=== PATIENT | female | born 1970 | race Caucasian/White ===

== ENCOUNTER 2023-08-16 16:40 | Inpatient (IN) ==
[2023-08-16 17:58] LABS: Appearance Urine Clear (Clear); Bilirubin Urine Negative (Negative); Blood Urine Negative (Negative); Color Urine Yellow; Glucose Urine UA Negative (Negative); Ketones Urine Negative (Negative); Leukocyte Esterase Urine 1+ (Negative); Nitrite Urine Negative (Negative); Protein Urine Negative (Negative); Specific Gravity Urine 1.005 (1.000-1.030); Urobilinogen Urine Negative (Negative); pH Urine 5.5 (4.5-7.5)
--- NOTE | 2023-08-16 18:01 | Emergency Department Note ---
History of Present Illness General Chief complaint: Mental Health Evaluation Stated complaint: Mental Health Evaluation Time Seen by Provider: 08/16/23 17:29 History of Present Illness Provider complaint: Mental health evaluation 53-year-old female presents emergency department for mental health evaluation. Patient reports she started drinking alcohol again recently. She states she called her counselor who referred her to the emergency department. She currently denies any suicidal or homicidal ideation. Patient reports no falls or traumas but states she fell like she was get a pass out earlier today. Home Medications Medication Instructions Recorded Confirmed Type alprazolam 0.5 mg tablet 0.5 mg PO BID PRN Anxiety 10/28/18 08/16/23 History venlafaxine 150 mg 150 mg PO QAM 10/28/18 08/16/23 History capsule,extended release 24 hr clonidine HCl 0.1 mg tablet 0.2 mg PO HS 10/23/19 08/16/23 History lisinopril 20 mg tablet 20 mg PO QAM 07/26/20 08/16/23 History buspirone 10 mg tablet 10 mg PO BID 08/16/23 08/16/23 History gabapentin 300 mg capsule 300 mg PO TID 08/16/23 08/16/23 History hydroxychloroquine 200 mg tablet 200 mg PO HS 08/16/23 08/16/23 History methotrexate sodium 2.5 mg tablet 10 mg PO 2XWK 08/16/23 08/16/23 History Allergies Allergy/AdvReac Type Severity Reaction Status Date / Time No Known Allergies Allergy Verified 07/26/20 18:39 Past Med/Surg History Medical History (Updated 08/16/23 @ 21:29 by Bernardo Spears MD) HTN (hypertension) Alcohol use Rheumatoid arthritis Hyponatremia Alcoholic intoxication Dysthymia (or depressive neurosis) Surgical History History of gastric bypass Family History Other No pertinent family history in first degree relatives Social History Smoking Status: Never smoker Preferred Language: [place] marital status: current occupational status: employed Feels Safe at Home: Yes Physical Exam Vital Signs Vital Signs - 24 hr 08/16/23 17:13 08/16/23 18:32 08/16/23 20:24 Temperature 36.3 C L Temperature Source Temporal Artery Scan Pulse Rate 92 H Pulse Rate [Apical] 95 H 86 Pulse Rhythm [Apical] Regular Respiratory Rate 18 16 19 Respiratory Effort / Characteristics Non-Labored Respiratory Depth Normal Respiratory Pattern Regular Blood Pressure 188/107 H Blood Pressure [Left Arm] 157/88 H 156/90 H Blood Pressure Mean 134 Blood Pressure Mean [Left Arm] 111 112 Pulse Oximetry 99 97 97 Oxygen Delivery Method Room Air Room Air Sepsis Recent Fever Within 48 Hours No Sepsis New/Unexplained Change in Mental Status N/A Sepsis Action Taken by Nursing No Action Required 08/16/23 21:05 Temperature Temperature Source Pulse Rate Pulse Rate [Apical] 81 Pulse Rhythm [Apical] Respiratory Rate 16 Respiratory Effort / Characteristics Respiratory Depth Respiratory Pattern Blood Pressure Blood Pressure [Left Arm] 141/86 H Blood Pressure Mean Blood Pressure Mean [Left Arm] 104 Pulse Oximetry 97 Oxygen Delivery Method Room Air Sepsis Recent Fever Within 48 Hours Sepsis New/Unexplained Change in Mental Status Sepsis Action Taken by Nursing Physical Exam GENERAL: She is oriented to person, place, and time. She appears well-developed and well-nourished. She does not appear distressed. HENT: Exam performed. -Head: Normocephalic and atraumatic. -Right Ear: External ear normal. No mastoid erythema -Left Ear: External ear normal. No mastoid erythema -Mouth/Throat: The oropharynx is clear and moist. No trismus in the jaw. No dental abscesses or uvula swelling. No oropharyngeal exudate or tonsillar abscesses. EYES: Conjunctivae and EOM are normal. Pupils are equal, round, and reactive to light. Right eye exhibits no discharge. Left eye exhibits no discharge. No scleral icterus. NECK: Normal range of motion. Neck supple. No JVD present. No spinous process tenderness present. No tracheal deviation and normal range of motion present. CV: Normal rate, regular rhythm, normal heart sounds and intact distal pulses. There is no peripheral edema. Palpable radial pulses bue. PULM/CHEST: Effort normal and breath sounds normal. No respiratory distress. No stridor. She has no wheezes. She has no rales. ABD: The abdomen is soft. There is no tenderness. There is no rebound, no guarding. MUSC/SKEL: Normal range of motion. There is no peripheral edema, tenderness or deformity. LYMPH: No cervical adenopathy. NEURO: She is alert and oriented to person, place, and time. She has normal strength. No cranial nerve deficit or sensory deficit. Coordination and gait normal. GCS eye subscore is 4. GCS verbal subscore is 5. GCS motor subscore is 6. Cerebellar tests wnl. SKIN: Skin is warm and dry. She is not diaphoretic. PSYCH: She has a normal mood and affect. Behavior is normal. Judgment and thought content normal. Course Course 1728: The patient was evaluated in room A5. A complete history and physical exam was performed 1954: Vital signs stable. Patient sodium 120. Labs otherwise unremarkable. No seizure-like activity at this time no altered mental status no need for hypertonic saline. Patient will be gently hydrated with normal saline [facility] Se[facility]. Administered Medications Discontinued Medications Clonidine HCl (Clonidine Hcl 0.1 Mg Tab) 0.1 mg PO NOW ONE Stop: 08/16/23 20:16 Last Admin: 08/16/23 20:28 Dose: 0.1 mg Documented By: JOSE Sodium Chloride (Nss) 1,000 mls @ 80 mls/hr IV .[id number] [id number] Stop: 09/15/23 19:44 Last Admin: 08/16/23 20:21 Dose: Not Given Documented By: JOSE Thiamine HCl 100 mg/ Syringe 10 mls @ 2 mls/min IV NOW ONE Stop: 08/16/23 20:19 Last Admin: 08/16/23 20:28 Dose: 2 mls/min Documented By: JOSE Lorazepam (Lorazepam 1 Mg Tab) 1 mg SL NOW STA Stop: 08/16/23 18:57 Last Admin: 08/16/23 19:09 Dose: 1 mg Documented By: JOSE Ondansetron HCl (Ondansetron 4 Mg Od Tab) 4 mg PO NOW STA Stop: 08/16/23 18:57 Last Admin: 08/16/23 19:09 Dose: 4 mg Documented By: JOSE Medical Decision Making Laboratory Data Attestation: I reviewed the patient's lab results. 08/16/23 18:29 08/16/23 18:29 Lab Results 08/16/23 08/16/23 08/16/23 Range/Units 17:34 17:38 18:29 WBC 7.61 (4.8-10.8) K/ul RBC 4.01 L (4.20-5.40) M/uL Hgb 11.2 L (12.0-16.0) g/dl Hct 32.1 L (37.0-47.0) % MCV 80.0 (80.0-100.0) fL MCH 27.9 (25.0-34.0) pg MCHC 34.9 (32.0-36.0) g/dL RDW Std Deviation 43.7 (36.4-46.3) fL RDW Coeff of Leon 15.0 H (11.5-14.5) % Plt Count 224 (130-400) K/uL MPV 10.3 (9.4-12.4) fL Immature Gran % (Auto) 0.3 % Neut % (Auto) 79.0 % Lymph % (Auto) 13.1 % [place] % (Auto) 6.8 % Eos % (Auto) 0.4 % Baso % (Auto) 0.4 % Neut # (Auto) 6.01 (1.40-6.50) K/uL Lymph # (Auto) 1.00 L (1.20-3.40) K/uL [place] # (Auto) 0.52 (0.11-0.59) K/uL Eos # (Auto) 0.03 (0.00-0.50) K/uL Baso # (Auto) 0.03 (0.00-0.20) K/uL Immature Gran # (Auto) 0.02 (0.01-0.20) K/uL Sodium 120 L (136-145) mmol/L Potassium 3.7 (3.5-5.1) mmol/L Chloride 89 L (98-107) mmol/L Carbon Dioxide 23 (21-32) mmol/L Anion Gap 8 (3-11) BUN 7 (6-23) mg/dl Creatinine 0.62 (0.6-1.2) mg/dl Est Cr Clr Drug Dosing 104.5 ml/min Est GFR ( Amer) 120.2 ml/min Est GFR (Non-Af Amer) 103.7 ml/min BUN/Creatinine Ratio 11.3 (10-20) Glucose 132 H (70-99(Fasting)) mg/dl Osmolality (280-300) mOsm/kg Calcium 8.3 L (8.6-10.3) mg/dl Magnesium 1.9 (1.7-2.4) mg/dl Total Bilirubin 0.6 (0.2-1.0) mg/dl AST 31 (13-39) U/L ALT 26 (7-52) U/L Alkaline Phosphatase 91 (34-104) U/L Total Protein 6.7 (6.0-8.3) gm/dl Albumin 3.8 (3.4-5.0) gm/dl Globulin 2.9 (2.5-4.0) gm/dl Albumin/Globulin Ratio 1.3 (0.9-2) TSH 1.271 (0.300-4.500) uIu/ml Urine Color Yellow Urine Appearance Clear (Clear) Urine pH 5.5 (4.5-7.5) Ur Specific [place] 1.005 (1.000-1.030) Urine Protein Negative (Negative) Urine Glucose (UA) Negative (Negative) Urine Ketones Negative (Negative) Urine Blood Negative (Negative) Urine Nitrite Negative (Negative) Urine Bilirubin Negative (Negative) Urine Urobilinogen Negative (Negative) Ur Leukocyte Esterase 1+ H (Negative) Urine WBC (Auto) 1-5 (0-5) /hpf Urine RBC (Auto) 0-4 (0-4) /hpf U Hyaline Cast (Auto) 0 (0-5) /lpf U Epithel Cells (Auto) 5-10 H (0-5) /lpf Urine Bacteria (Auto) Negative (Negative) Ur Random Sodium mmol/L Salicylates < 3.0 L (3.0-30) mg/dl Urine Opiates Screen Neg (Neg) Ur Methadone, Qual Neg (Neg) Acetaminophen < 3 L (10-30) ug/ml Urine Barbiturates Neg (Neg) Ur Phencyclidine (PCP) Neg (Neg) U Amphetamin/Meth Scrn Neg (Neg) MDMA (Ecstasy) Screen Neg (Neg) U Benzodiazepines Scrn Neg (Neg) Ur Cocaine Metabolite Neg (Neg) U Marijuana (THC) Screen Pos H (Neg) Ethyl Alcohol mg/dL < 10.0 (<10.0) mg/dl SARS-CoV-2, RNA, NAAT NEGATIVE (NEGATIVE) 08/16/23 08/16/23 Range/Units 18:30 20:55 WBC (4.8-10.8) K/ul RBC (4.20-5.40) M/uL Hgb (12.0-16.0) g/dl Hct (37.0-47.0) % MCV (80.0-100.0) fL MCH (25.0-34.0) pg MCHC (32.0-36.0) g/dL RDW Std Deviation (36.4-46.3) fL RDW Coeff of Leon (11.5-14.5) % Plt Count (130-400) K/uL MPV (9.4-12.4) fL Immature Gran % (Auto) % Neut % (Auto) % Lymph % (Auto) % [place] % (Auto) % Eos % (Auto) % Baso % (Auto) % Neut # (Auto) (1.40-6.50) K/uL Lymph # (Auto) (1.20-3.40) K/uL [place] # (Auto) (0.11-0.59) K/uL Eos # (Auto) (0.00-0.50) K/uL Baso # (Auto) (0.00-0.20) K/uL Immature Gran # (Auto) (0.01-0.20) K/uL Sodium (136-145) mmol/L Potassium (3.5-5.1) mmol/L Chloride (98-107) mmol/L Carbon Dioxide (21-32) mmol/L Anion Gap (3-11) BUN (6-23) mg/dl Creatinine (0.6-1.2) mg/dl Est Cr Clr Drug Dosing ml/min Est GFR ( Amer) ml/min Est GFR (Non-Af Amer) ml/min BUN/Creatinine Ratio (10-20) Glucose (70-99(Fasting)) mg/dl Osmolality 251 L (280-300) mOsm/kg Calcium (8.6-10.3) mg/dl Magnesium (1.7-2.4) mg/dl Total Bilirubin (0.2-1.0) mg/dl AST (13-39) U/L ALT (7-52) U/L Alkaline Phosphatase (34-104) U/L Total Protein (6.0-8.3) gm/dl Albumin (3.4-5.0) gm/dl Globulin (2.5-4.0) gm/dl Albumin/Globulin Ratio (0.9-2) TSH (0.300-4.500) uIu/ml Urine Color Urine Appearance (Clear) Urine pH (4.5-7.5) Ur Specific [place] (1.000-1.030) Urine Protein (Negative) Urine Glucose (UA) (Negative) Urine Ketones (Negative) Urine Blood (Negative) Urine Nitrite (Negative) Urine Bilirubin (Negative) Urine Urobilinogen (Negative) Ur Leukocyte Esterase (Negative) Urine WBC (Auto) (0-5) /hpf Urine RBC (Auto) (0-4) /hpf U Hyaline Cast (Auto) (0-5) /lpf U Epithel Cells (Auto) (0-5) /lpf Urine Bacteria (Auto) (Negative) Ur Random Sodium 11 mmol/L Salicylates (3.0-30) mg/dl Urine Opiates Screen (Neg) Ur Methadone, Qual (Neg) Acetaminophen (10-30) ug/ml Urine Barbiturates (Neg) Ur Phencyclidine (PCP) (Neg) U Amphetamin/Meth Scrn (Neg) MDMA (Ecstasy) Screen (Neg) U Benzodiazepines Scrn (Neg) Ur Cocaine Metabolite (Neg) U Marijuana (THC) Screen (Neg) Ethyl Alcohol mg/dL (<10.0) mg/dl SARS-CoV-2, RNA, NAAT (NEGATIVE) Imaging Data Radiologist's Impression: Head CT 08/16/23 17:38 CT head/brain wo con CLINICAL HISTORY: near syncope Technique: Contiguous axial CT images of the head were acquired from the base of the skull to the vertex without intravenous contrast administration. Images were viewed in brain, subdural and bone windows. Automated dose lowering techniques and/or adjustment according to patient size were utilized for this exam. Comparison: Comparison is made to CT head 07/26/2020 Findings: Ventriculomegaly is seen with a right lateral approach ventriculostomy catheter terminating in the right lateral ventricle. Imaged portions of the paranasal sinuses and mastoid air cells are clear. The orbits appear normal. There are no acute fractures of the calvaria or scalp swelling. Impression: No acute abnormalities. Ventriculostomy catheter and ventriculomegaly are unchanged from prior. ACT 112: Negative or not required by law. Electronically signed by: David Yost M.D. 08/16/2023 6:43 PM MDM Narrative Vital signs stable. Patient sodium 120. Labs otherwise unremarkable. No seizure-like activity at this time no altered mental status no need for hypertonic saline. Patient will be gently hydrated with normal saline [facility] Seo notified. Impression & Plan Hyponatremia Discharge Plan Visit Data Chief Complaint: Mental Health Evaluation Stated Complaint: Mental Health Evaluation ED Provider: Bernardo Spears Discharge Problem: Hyponatremia Patient Disposition: Admitted As Inpatient Forms Stand Alone Forms: [facility], Suicide Prevention Resources Prescriptions Prescriptions: No Action venlafaxine 150 mg capsule,extended release 24hr 150 mg PO QAM alprazolam 0.5 mg tablet 0.5 mg PO BID PRN (Reason: Anxiety) clonidine HCl 0.1 mg tablet 0.2 mg PO HS lisinopril 20 mg tablet 20 mg PO QAM methotrexate sodium 2.5 mg tablet 10 mg PO 2XWK buspirone 10 mg tablet 10 mg PO BID gabapentin 300 mg capsule 300 mg PO TID hydroxychloroquine 200 mg tablet 200 mg PO HS Referrals Referrals: Kaleigh Miramontes DO [Primary Care Provider] -
[2023-08-16 18:16] LABS: RBC Urine Automated 0-4 /hpf (0-4)
[2023-08-16 18:17] LABS: Bacteria Urine Automated Negative (Negative); Cast Urine Automated 0 /lpf (0-5)
[2023-08-16 18:37] LABS: Amphetamines+Metham, Urine Neg (Neg); Barbiturates, Urine Neg (Neg); Benzodiazepine, Urine Neg (Neg); Cocaine, Urine Neg (Neg); MDMA (Ecstacy), Urine Neg (Neg); Marijuana, Urine Pos (Neg); Methadone, Urine Neg (Neg); Opiate, Urine Neg (Neg); Phencyclidine, Urine Neg (Neg)
--- NOTE | 2023-08-16 18:44 | CT Scan Report ---
CT head/brain wo con CLINICAL HISTORY: near syncope Technique: Contiguous axial CT images of the head were acquired from the base of the skull to the ami elsi without intravenous contrast administration. Images were viewed in brain, subdural and bone channing home. Automated dose lowering techniques and/or adjustment according to patient size were utilized for this exam. Comparison: Comparison is made to CT head 07/26/2020 Findings: Ventriculomegaly is seen with a right lateral approach ventriculostomy catheter terminating in the ri ght lateral ventricle. Imaged portions of the paranasal sinuses and mastoid air cells are clear. The orbits appear normal. There are no acute fractures of the calvaria or scalp swelling. Impression: No acute abnormalities. Ventriculostomy catheter and ventriculomegaly are unchanged from prior. ACT 112: Negative or not required by law. Electronically signed by: David Yost M.D. 08/16/2023 6:43 PM
[2023-08-16 18:45] LABS: Basophils # (auto) 0.03 K/uL (0.00-0.20); Basophils % (auto) 0.4 %; Eosinophils # (auto) 0.03 K/uL (0.00-0.50); Eosinophils % (auto) 0.4 %; Hematocrit (blood only) 32.1 % (37.0-47.0); Hemoglobin 11.2 g/dl (12.0-16.0); Immature Granulocytes # (auto) 0.02 K/uL (0.01-0.20); Immature Granulocytes % (auto) 0.3 %; Lymphocytes % (auto) 13.1 %; Mean Corpuscular Hemoglobin 27.9 pg (25.0-34.0); Mean Corpuscular Hgb Conc 34.9 g/dL (32.0-36.0); Mean Platelet Volume 10.3 fL (9.4-12.4); Monocytes # (auto) 0.52 K/uL (0.11-0.59); Monocytes % (auto) 6.8 %; Neutrophils # (auto) 6.01 K/uL (1.40-6.50); Platelet Count 224 K/uL (130-400); RDW Standard Deviation 43.7 fL (36.4-46.3); Red Blood Count 4.01 M/uL (4.20-5.40); White Blood Count 7.61 K/ul (4.8-10.8)
[2023-08-16] MEDS ORDERED: LORazepam 1 MG TAB SL STA (18:56)
[2023-08-16] MEDS ORDERED: ONDANSETRON 4 MG OD TAB PO STA (18:56)
[2023-08-16 19:01] LABS: Albumin Globulin Ratio 1.3 (0.9-2); Albumin Level 3.8 gm/dl (3.4-5.0); BUN Creatinine Ratio 11.3 (10-20); Bilirubin,Total 0.6 mg/dl (0.2-1.0); Calcium 8.3 mg/dl (8.6-10.3); Creatinine Clr Calc Pharmacy 104.5 ml/min; Est GFR (African American) 120.2 ml/min; Est GFR (Non-African American) 103.7 ml/min; Globulin 2.9 gm/dl (2.5-4.0); Potassium 3.7 mmol/L (3.5-5.1); Total Protein 6.7 gm/dl (6.0-8.3)
[2023-08-16 19:13] LABS: Acetaminophen < 3 ug/ml (10-30); Salicylate < 3.0 mg/dl (3.0-30)
[2023-08-16 19:16] LABS: Thyroid Stimulating Hormone 1.271 uIu/ml (0.300-4.500)
[2023-08-16] MEDS ORDERED: SODIUM CHLORIDE 0.9% 1,000 ML IV SCH (19:45)
--- NOTE | 2023-08-16 20:08 | History & Physical Report ---
Date of Service August 16, 2023 Assessment & Plan (1) Hyponatremia: (2) History of gastric bypass: (3) Dysthymia (or depressive neurosis): (4) Rheumatoid arthritis: (5) Alcohol use: (6) HTN (hypertension): Plan Ms. Talbert is a 53 year old female that presented to the [facility] today as per recommendation by her coworkers. This morning she was feeling faint at work, she works at [employer]. She was walking and knocked over some [place] decorations. Her coworkers stated that she should go to the emergency room she has history of alcohol abuse and had an alcoholic drink last Wednesday; previously has been sober since 2019 She drank 12 simply lemonade's 5% proof over 32 hours. She follows with a counselor weekly who stated that it it appeared as though she has had worsening anxiety and dizziness over the past few weeks. Reports that there have been significant stressors in her life that led to her drinking which includes her fianc moving out and both grandparents within a few days of each other a few months ago. Additional PMH includes: Dysthymia, alcohol abuse, history of gastric bypass (2011), rheumatoid arthritis, hydrocephalus as an infant status post ventriculostomy. Head CT was performed and results indicate No acute abnormalities. Ventriculostomy catheter and ventriculomegaly are unchanged from prior. No leukocytosis and otherwise labs unremarkable outside of hyponatremia serum sodium 120. Patient denies headache, fatigue, lethargy, gait disturbance, confusion, forgetfulness, headache, gait disturbance, or muscle cramps. Denies recent falls or trauma. Patient reports no suicidal ideation, no falls however did feel syncopal earlier Suspect patient is hyponatremic secondary to alcohol use disorder. Patient is high risk for OTS; goal of initial therapy suggest to raise the serum sodium by 4 to 6 mEq/L over 24-hour period and avoid overcorrection. Check Q6 BMP, including serum Na+, Urine Osmo, urine Na+; based on next BMP consider Nephrology involvement for consideration of 3% NS. Consider Behavioral Health Liason for worsening depressive mood. Thiamine for alcohol symptoms. Need to consider ECHO and rule out heart failure if no improvement with sodium. Hyponatremia: acute Likely secondary to alcohol use disorder Serum Na+ 120; was 136 on 07/13/23 Patient is high risk for OTS; goal of initial therapy suggest to raise the serum sodium by 4 to 6 mEq/L over 24-hour period and avoid overcorrection. Check BMP with serum Na+ Q6 Check Urine Osmolality, Urine Na+ Consider Nephro involvement if no improvement Alcohol Abuse: Acute had her first alcoholic drink last Wednesday; previously has been sober since 2019 She drank 12 simply lemonade's 5% proof over 32 hours no signs of tremulous on exam Follows with a counselor weekly HTN: Chronic Takes Clonidine and Lisinopril; continue Dysthymia: Chronic Takes Venlafaxine;continue Takes Alprazolam PRN; continue Consider Behavioral health Liason consult for worsening depression Rheumatoid arthritis: Chronic Follows with rheumatology; Dr. 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 Miramontes Code Status: Full Code VTE Prophylaxis: TEDs/SCDs for now; patient is ambulatory at baseline I spent a total of 87 minutes coordinating, documenting, and providing care for this patient excluding time spent in the performance of separately billed services. All of the aforementioned completed while collaborating with the assigned attending physician for a full treatment plan. Please see their addendum for further details. History of Present Illness Chief Complaint: hyponatremia Primary Care Provider: Kaleigh Miramontes DO Ms. Talbert is a 53 year old female that presented to the [facility] today as per recommendation by her coworkers. This morning she was feeling faint at work, she works at [employer]. She was walking and knocked over some [place] decorations. Her coworkers stated that she should go to the emergency room she has history of alcohol abuse and had an alcoholic drink last Wednesday; previously has been sober since 2019 She drank 12 simply lemonade's 5% proof over 32 hours. She follows with a counselor weekly who stated that it it appeared as though she has had worsening anxiety and dizziness over the past few weeks. Reports that there have been significant stressors in her life that led to her drinking which includes her fianc moving out and both grandparents within a few days of each other a few months ago. Additional PMH includes: Dysthymia, alcohol abuse, history of gastric bypass (2011), rheumatoid arthritis, hydrocephalus as an infant. Head CT was performed and results indicate No acute abnormalities. Ventriculostomy catheter and ventriculomegaly are unchanged from prior. Patient denies headache, fatigue, lethargy, gait disturbance, confusion, forgetfulness, headache, gait disturbance, or muscle cramps. Denies recent falls or trauma. Patient reports no suicidal ideation, no falls however did feel syncopal earlier. Suspect patient is hyponatremic secondary to alcohol use disorder. Patient is high risk for OTS; goal of initial therapy suggest to raise the serum sodium by 4 to 6 mEq/L over 24-hour period and avoid overcorrection. Check Q6 BMP, including serum Na+, Urine Osmo, urine Na+; based on next BMP consider Nephrology involvement for consideration of 3% NS. Patient will be admitted for further evaluation and management. Please see A/P for further details. Allergies Allergy/AdvReac Type Severity Reaction Status Date / Time No Known Allergies Allergy Verified 07/26/20 18:39 Home Medications Medication Instructions Recorded Confirmed Type alprazolam 0.5 mg tablet 0.5 mg PO BID PRN Anxiety 10/28/18 08/16/23 History venlafaxine 150 mg 150 mg PO QAM 10/28/18 08/16/23 History capsule,extended release 24 hr clonidine HCl 0.1 mg tablet 0.2 mg PO HS 10/23/19 08/16/23 History lisinopril 20 mg tablet 20 mg PO QAM 07/26/20 08/16/23 History buspirone 10 mg tablet 10 mg PO BID 08/16/23 08/16/23 History gabapentin 300 mg capsule 300 mg PO TID 08/16/23 08/16/23 History hydroxychloroquine 200 mg tablet 200 mg PO HS 08/16/23 08/16/23 History methotrexate sodium 2.5 mg tablet 10 mg PO 2XWK 08/16/23 08/16/23 History Past Med/Surg History Medical History (Updated 08/16/23 @ 21:29 by Bernardo Spears MD) HTN (hypertension) Alcohol use Rheumatoid arthritis Hyponatremia Alcoholic intoxication Dysthymia (or depressive neurosis) Surgical History History of gastric bypass Family History Other No pertinent family history in first degree relatives Social History Smoking Status: Never smoker Preferred Language: Indonesian marital status: current occupational status: employed Feels Safe at Home: Yes Review of Systems Review of Systems: Neuro: (-) Falls, trauma, slurred speech HEENT: (-) CAMARENA, (+) dizziness, dysphagia, visual or auditory changes CV: (-) CP, palpitations, swelling Resp: (+) SOB GI: (-) appetite changes, N/V/D, bowel changes : (-) urinary changes Skin: (-) rashes Psych: (-) anxiety, depression Physical Exam Physical Exam: Neuro: AAOx4, PERRLA, no aphagia, memory changes, CNII-XII grossly intact HEENT: head normocephalic, moist mucus membranes CV: S1/S2, (-) M/G/R, (-) edema, cap refill < 3 seconds Resp: Lungs CTA in all beltran. On RA GI: Abdomen S/NT/ND, Ax4 bowel sounds, (-) CVA tenderness Musculoskeletal: 5/5 B/L UE strength, 5/5 B/L LE strength. No gait disturbance Skin: (-) rashes , (-) erythema. Psych: euthymic mood Results & Data Results & Data Vital Signs (Past 12 Hours) Vital Signs Temp Pulse Pulse Resp BP BP Pulse Ox 08/16/23 18:32 95 H 16 157/88 H 97 08/16/23 17:13 36.3 C L 92 H 18 188/107 H 99 O2 Del Method 08/16/23 18:32 Room Air 08/16/23 17:13 Room Air Laboratory Results Short CBC 08/16/23 Range/Units 18:29 WBC 7.61 (4.8-10.8) K/ul Hgb 11.2 L (12.0-16.0) g/dl Hct 32.1 L (37.0-47.0) % Plt Count 224 (130-400) K/uL BMP 08/16/23 18:29 Sodium 120 L Potassium 3.7 Chloride 89 L Carbon Dioxide 23 BUN 7 Creatinine 0.62 Glucose 132 H Calcium 8.3 L Liver Function 08/16/23 Range/Units 18:29 Total Bilirubin 0.6 (0.2-1.0) mg/dl AST 31 (13-39) U/L ALT 26 (7-52) U/L Alkaline Phosphatase 91 (34-104) U/L Albumin 3.8 (3.4-5.0) gm/dl Urine 08/16/23 Range/Units 17:34 Urine Color Yellow Urine Appearance Clear (Clear) Urine pH 5.5 (4.5-7.5) Ur Specific [place] 1.005 (1.000-1.030) Urine Protein Negative (Negative) Urine Glucose (UA) Negative (Negative) Diagnostic Findings Head CT 08/16/23 17:38 CT head/brain wo con CLINICAL HISTORY: near syncope Technique: Contiguous axial CT images of the head were acquired from the base of the skull to the vertex without intravenous contrast administration. Images were viewed in brain, subdural and bone windows. Automated dose lowering techniques and/or adjustment according to patient size were utilized for this exam. Comparison: Comparison is made to CT head 07/26/2020 Findings: Ventriculomegaly is seen with a right lateral approach ventriculostomy catheter terminating in the right lateral ventricle. Imaged portions of the paranasal sinuses and mastoid air cells are clear. The orbits appear normal. There are no acute fractures of the calvaria or scalp swelling. Impression: No acute abnormalities. Ventriculostomy catheter and ventriculomegaly are unchanged from prior. ACT 112: Negative or not required by law. Electronically signed by: David Yost M.D. 08/16/2023 6:43 PM Code Status & VTE Plan Code Status Full code in the event of cardiac respiratory arrest Supervising Physician Co-Signing Physician Notes IM ATTENDING : Patient seen and examined. History obtained from patient and records. Preceding documentation by WYATT Coles reviewed. FINAL ASSESSMENT AND PLAN as follows : Acute hyponatremia presenting as dizziness, imbalance Possibly from alcohol abuse Hypertension, elevated secondary to anxiety Anxiety/mood disorder, suboptimal as per patient account, patient denies suicidality History childhood obstructive hydrocephalus status post shunt Chronic anemia (baseline hemoglobin of 13), hemoglobin at baseline History gastric bypass RA, stable on current regimen Hyperglycemia rule out DM Medical telemetry Hyponatremia workup Careful correction of sodium Nephrology consult if not improvement JAYLEN S at risk protocol, DT precautions Facilitate home clonidine Check hemoglobin A1c DVT prophylaxis. Lovenox subcu Full code Text document was generated using [employer] voice recognition software. It may contain grammatical or spelling errors. Kindly contact undersigned for clarification of any documentation item in question.
[2023-08-16] MEDS ORDERED: THIAMINE HCL 100 MG in SYRINGE 9 ML IV ONE (20:15)
[2023-08-16] MEDS ORDERED: cloNIDine HCL 0.1 MG TAB PO ONE (20:15)
[2023-08-16 20:29] LABS: Magnesium 1.9 mg/dl (1.7-2.4)
[2023-08-16] MEDS ORDERED: SODIUM CHLORIDE 0.9% 500 ML IV ONE (20:49)
[2023-08-16] MEDS ORDERED: GABAPENTIN 300 MG CAP PO STA (21:25)
[2023-08-16] MEDS ORDERED: PROMETHAZINE 12.5 MG/50.5 ML BAG IV PRN (21:25)
[2023-08-16] MEDS ORDERED: busPIRone 5 MG TAB PO STA (21:25)
[2023-08-16] MEDS ORDERED: LORazepam 1 MG in SYRINGE 0.5 ML IV PRN (21:25)
[2023-08-16] MEDS ORDERED: CALCIUM GLUCONATE 1,000 MG/60 ML BAG IV STA (21:28)
[2023-08-16] MEDS ORDERED: LORazepam 2 MG/1 ML VIAL ONE (23:53)
[2023-08-17] MEDS ORDERED: DEXTROSE 5% 1,000 ML IV ONE (01:33)
[2023-08-17] MEDS ORDERED: LORazepam 2 MG in SYRINGE 1 ML IV PRN (01:40)
[2023-08-17] MEDS ORDERED: Ativan IV Alcohol Withdrawal--Active Protocol IV PRN (01:40)
[2023-08-17] MEDS ORDERED: LORazepam 1 MG in SYRINGE 0.5 ML IV PRN (01:40)
[2023-08-17] MEDS ORDERED: LORazepam 3 MG in SYRINGE 1.5 ML IV PRN (01:40)
--- OUTSIDE RECORDS SUMMARY | 2023-08-17 03:03 | External Medical Summary | Summary of Care ---
Author Name Unknown Organization [facility] Address [address] [place] [address] Phone [phone] Care Team Providers Care Treating Inspector Name Role Phone Kulwinder Kaleigh Simmons DO Primary Care Provider Reason for Visit * Reason Comments Outpatient Testing Encounter Details Date Type Department Care Team (Late st Contact Info) Description 07/13/2023 3:50 PM EST Laboratory Laboratory, [facility] [address] [place] [address] [facility] [address] [place] [address] Rheumatoid arthritis involving multiple sites with positive rheumatoid factor (HCC); Encounter for long-term (current) use of medications Allergies No known active allergiesdocumented as of this encounter (statuses as of 07/13/2023) Medications Medication Sig Dispensed Refills Start Date End Date Status Venlafaxine HCl ER 150 MG Oral Capsule Extended Release 24 Hour (Effexor XR)Indications:Moder ate episode of recurrent major depressive disorder (HCC) Take 1 Cap by mouth daily. 30 Cap 11 10/10/2020 Active Multivitamin Women 50+ Oral Tablet Take by mouth daily . 0 Active Hair/Skin/Nails 1250-7.5-7.5 MCG-MG-UNT Oral Tablet Chewable (Biotin w/ Vitamins C & E) Take by mouth daily . 0 Active Viactiv Calcium Plus D 650-12.5-40 MG-MCG Oral Tablet Chewable (Calcium-Vitamin D-Vitamin K) Take by mouth 2 times a day . 0 Active cloNIDine HCl 0.1 MG Oral Tablet (Catapres)Indication s:Alcohol abuse, in remission,Elevated blood pressure, situational,HTN, goal below 140/90 TAKE 2 TABLETS BY MOUTH EVERY EVENING 270 Tablet 2 08/16/2022 Active predniSONE 5 MG Oral Tablet (Deltasone) Take 15mg daily for 4 days, then 10mg daily for 4 days, then 5mg daily for 4 days then stop 24 Tablet 6 11/10/2022 Active Gabapentin 300 MG Oral Capsule (Neurontin) TAKE 1 CAPSULE BY MOUTH IN THE MORNING, 1 AT NOON AND 1 BEFORE BEDTIME 90 Capsule 11 12/14/2022 Active Hydroxychloroquine Sulfate 200 MG Oral Tablet (Plaquenil) TAKE 1 TABLET BY MOUTH EVERYDAY AT BEDTIME 30 Tablet 11 01/05/2023 Active Methotrexate 2.5 MG Oral TabletIndications:Rh eumatoid arthritis involving multiple sites with positive rheumatoid factor (HCC),Encounter for long-term (current) use of medications Take 4 tabs at breakfast and 4 tabs with dinner once a week 40 Tablet 3 04/07/2023 Active Folic Acid 1 MG Oral TabletIndications:Rh eumatoid arthritis involving multiple sites with positive rheumatoid factor (HCC),Encounter for long-term (current) use of medications Take 1 Tablet by mouth in the morning. 30 Tablet 5 04/07/2023 Active tiZANidine HCl 4 MG Oral Tablet (Zanaflex) Take 1 Tablet by mouth at bedtime as needed for Muscle spasms. 10 Tablet 0 04/07/2023 Active Lisinopril 20 MG Oral Tablet (Prinivil) TAKE 1 TABLET BY MOUTH EVERY DAY 90 Tablet 0 05/25/2023 Active documented as of this encounter (statuses as of 07/13/2023) Active Problems Problem Noted Date Diagnosed Date Rheumatoid arthritis involvi ng multiple sites with positive rheumatoid factor 11/10/2022 Encounter for long-term (current) use of medicat ions 11/10/2022 IUD (intrauterine device) in place 06/18/2021 Hydrocephalus 10/02/2019 Overview: shunt Alcohol abuse, in remission 01/13/2015 Anxiety 01/13/2015 Depression 01/13/2015 Insomnia 01/13/2015 HTN, goal below 140/90 Anxiety documented as of this encounter (statuses as of 07/13/2023) Resolved Problems Problem Noted Date Diagnosed Date Resolved Date Food insecurity 04/07/2021 05/14/2022 Overview: Per [facility] Protocol documented as of this encounter (statuses as of 07/13/2023) Immunizations Name Administration Dates Next Due COVID-19 mRNA, LNP-s, No Pre serve, 2-Dose Series (Moderna) 12/02/2020,11/04/2020 COVID-19, MRNA-LNP, 23-24, P F, 30 MCG/0.3 mL, 12 YRS AND ABOVE, IM (PFIZER-Comirnaty) 07/13/2023 PPD 06/09/2019 Pneumococcal Conjugate Vacci ne, 20-valent ([id number]) 07/13/2023 SEASONAL INFLUENZA, PF, 6 M & Above, IM , (FLULAVAL or FLUZONE) 07/13/2023,06/09/2019,05/24/2017 Seasonal Influenza Virus Vac cine, Unspecified Formulation 06/18/2021 Seasonal Influenza, Quadriva lent, No Preserve, IM 06/22/2016 Seasonal Influenza, Split, I IV3, With Preserve, Inj 05/30/2014 TDAP (age 10 and older)(Boostrix) 10/23/2019, documented as of this encounter Social History Tobacco Use Types Packs/Day Years Used Date Smoking Tobacco: Never Smokeless Tobacco: Never Alcohol Use Standard Drinks/Week Comments No 0 (1 standard drink = 0.6 oz pur e alcohol) PHQ-2 Answer Date Recorded PHQ-2 Score 10 10/02/2019 Hunger Vital Sign Answer Date Recorded Within the past 12 months, y ou worried that your food would run out before you got the money to buy more. Never true 04/08/20 23 Within the past 12 months, t he food you bought just didn't last and you didn't have money to get more. Never true 04/08/2023 Sex and Gender Information Value Date Recorded Sex Assigned at Female 03/17/2022 6:10 PM EDT Gender Identity Female 03/17/2022 6:10 PM EDT Sexual Orientation Straight 03/17/2022 6: 10 PM EDT Job Start Date Occupation Industry Not on file Not on file Not on file documented as of this encounter Plan of Treatment Upcoming Encounters Date Type Department Care Team (Latest Contact Info) Description 07/13/2023 4:00 PM EST Nurse Only Ancillary [facility] [address] [facility] [place] [address] [facility] Nurse Fam [facility] [address] [place] [address] Medication Administration (Flu and/or Pneu... 08/03/2023 5:20 PM EST Office Visit Family [facility] [address] [place] [address] Ghazala Duke PA-C [address] [place] [address] 08/11/2023 1:00 PM EST Office Visit Rheumatology [place] [address] [address] [place] [address] Krystian Villarreal MD [facility] [place] [address] 10/08/2023 10:30 AM EST Imaging Radiology [facility] [address] [facility] [address] [facility] [place] [address] Pending Results Name Type Priority Associated Diagnoses Date /Time CBC WITH WBC DIFFERENTIAL Lab Routine Rheumatoid arthritis involving multiple sites with positive rheumatoid factor (HCC) Encounter for long-term (current) use of medications 07/13/2023 3:42 PM EST COMPREHENSIVE METABOLIC PANEL Lab Routine Rheumatoid arthritis involving multiple sites with positive rheumatoid factor (HCC) Encounter for long-term (current) use of medications 07/13/2023 3:42 PM EST CBC Lab Routine Rheumatoid arthritis involving multiple sites with positive rheumatoid factor (HCC) Encounter for long-term (current) use of medications 07/13/2023 3:42 PM EST DIFFERENTIAL, AUTOMATED Lab Routine Rheumatoid arthritis involving multiple sites with positive rheumatoid factor (HCC) Encounter for long-term (current) use of medications 07/13/2023 3:42 PM EST Scheduled Procedures Name Priority Associated Diagnoses Date/Ti me COLONOSCOPY FLEXIBLE PROXIMAL DIAGNOSTIC Recall Screen for colon cancer Health Maintenance Due Date Last Done Comments Hepatitis B (1 of 3 - 3-dose series) 1971 Zoster Vaccines (1 of 2) 1990 HPV/Co-Test 2001 Cologuard 02/22/2016 Fecal Occult Blood Test 02/22/2016 Sigmoidoscopy 02/22/2016 Depression, Most Recent Score >= 10 (will fire each visit until score < 10) 10/03/2019 10/02/2019 Mammogram 06/19/2022 06/19/2021, 11/30/2014 GFR 04/22/2024 04/22/2023, 10/2021, 06/18/2021, Additional history exists IUD 7-Year 05/24/2024 05/24/2017 Cervical Cancer Screening 03/24/2025 Pap Smear 03/24/2025 03/24/2022, 05/31, 06/09/2019, Additional history exists Albumin/Creatinine Ratio 08/01/2025 08/01/2022 Diabetes Screening 04/22/2026 04/22/2023, 1 10/02/2021, 06/18/2021, Additional history exists Lipid Panel 06/18/2026 06/18/2021, 09/30, 10/08/2017, Additional history exists DTaP,Tdap,and Td Vaccines (3 - Td or Tdap) 10/23/2029 10/23/2019, 10/25/2014 Colonoscopy 12/19/2031 12/18/2021, 12/18/2021 Colorectal Cancer Screening 12/19/2031 COVID-19 Vaccine Completed 07/13/2023, 12/2020, 11/04/2020 Influenza Vaccine (FLU shot) Completed , 06/18/2021, 06/09/2019, Additional history exists Pneumococcal Vaccine: Pediatrics (0 to 5 Years) and At-Risk Patients (6 to 64 Years) Completed 07/13/2023 GARDASIL-HPV IMMUNIZATION SERIES Aged Out No longer eligible based on patient's age to complete this topic MENINGOCOCCAL (MENACTRA/MENVEO) Aged Out No longer eligible based on patient's age to complete this topic documented as of this encounter Medical Devices Not on filedocumented as of this encounter Visit Diagnoses Diagnosis Need for pneumococcal vaccination- Primary Need for prophylactic vaccination against streptococcus pneumoniae (pneumococcus) Need for prophylactic vaccination and inoculation against influenza Rheumatoid arthritis involving multiple sites with positive rheumatoid factor (HCC) Encounter for long-term (current) use of medications Encounter for long-term (current) use of other medications documented in this encounter Care Teams Treating Inspector Relationship Specialty Start Date End Date Kaleigh Miramontes DO [address] [place] [address] PCP - General Family Medicine 10/25/14 documented as of this encounter
--- OUTSIDE RECORDS SUMMARY | 2023-08-17 03:03 | External Medical Summary | Summary of Care ---
Author Name Unknown Organization [facility] Address [address] [place] [address] Phone [phone] Care Team Providers Care Supervisor Pyrotechnic Loading Name Role Phone Kaleigh Miramontes DO Primary Care Provider Reason for Visit * Reason Onset Date Comments Order Request 07/05/2023 Encounter Details Date Type Department Care Team (Late st Contact Info) Description 07/05/2023 Telephone Family Practice [facility] [address] [place] [address] Kaleigh Miramontes DO [address] [place] [address] Order Request Allergies No known active allergiesdocumented as of this encounter (statuses as of 07/08/2023) Medications Medication Sig Dispensed Refills Start Date [...] as of this encounter (statuses as of 07/08/2023) Active Problems Problem Noted Date Diagnosed Date Rheumatoid arthritis involvi ng multiple sites with positive rheumatoid factor 11/10/2022 Encounter for long-term (current) use of medicat ions 11/10/2022 IUD (intrauterine device) in place 06/18/2021 Hydrocephalus 10/02/2019 Overview: shunt Alcohol abuse, in remission 01/13/2015 Anxiety 01/13/2015 Depression 01/13/2015 Insomnia 01/13/2015 HTN, goal below 140/90 Anxiety documented as of this encounter (statuses as of 07/08/2023) Resolved Problems Problem Noted Date Diagnosed Date Resolved Date Food insecurity 04/07/2021 05/14/2022 Overview: Per [facility] Protocol documented as of this encounter (statuses as of 07/08/2023) Immunizations Name Administration Dates Next Due COVID-19 mRNA, LNP-s, No Pre serve, 2-Dose Series (Moderna) 12/02/2020,11/04/2020 PPD 06/09/2019 SEASONAL INFLUENZA, PF, 6 M & Above, IM , (FLULAVAL or FLUZONE) 06/09/2019,05/24/2017 Seasonal Influenza Virus Vac cine, Unspecified Formulation 06/18/2021 Seasonal Influenza, Quadrivalent, No Preserve, I M 06/22/2016 Seasonal Influenza, Split, IIV3, With Preserve, Inj 05/30/2014 TDAP (age 10 [...] on file documented as of this encounter Miscellaneous Notes * Telephone Encounter - Mira Odom OSA - 07/08/2023 8:55 AM EST Lmom 07/08 2nd attempt * Telephone Encounter - Mira Odom OSA - 07/06/2023 9:09 AM EST My g sent 07/06 * Telephone Encounter - Fadia Malave LPN - 07/05/2023 4:52 PM EST Orders placed please assist in scheduling * Telephone Encounter - Tere Pop OSA - 07/05/2023 4:15 PM EST An order was requested for this patient. Name of Requesting Provider: self Order Requested: Mammogram screening Diagnosis/Reason for Request: screening If order request is for Mammogram: Is the patient having any breast symptoms? No Is there a chance of ? No Has the patient had any breast problems in the past? No What location AND department does the patient wish to have their order completed at? [facility] Fax Number, if applicable: N/A Call Back Number: [phone] Last Mammo [address] order if agreeable. Pt scheduled with december 09 for check up If the caller is not a current patient, please advise the patient to call their current PCP to havethe order's prior to being seen in our office. The patient was informed that our providers would not order anything (medication, labs, etc.) prior to being seen. * Telephone Encounter - Tere Pop OSA - 07/05/2023 4:07 PM EST An order was requested for this patient. Name of Requesting Provider: self Order Requested: Pneumonia vaccine Diagnosis/Reason for Request: routine care If order request is for Mammogram: Is the patient having any breast symptoms? N/A Is there a chance of ? N/A Has the patient had any breast problems in the past? NA What location AND department does the patient wish to have their order completed at? [facility] Fax Number, if applicable: N/A Call Back Number: [phone] Pt scheduled at 07/[address] order If the caller is not a current patient, please advise the patient to call their current PCP to havethe order's prior to being seen in our office. The patient was informed that our providers would not order anything (medication, labs, etc.) prior to being seen. documented in this encounter Plan of Treatment Upcoming Encounters Date Type Department Care Team (Late st Contact Info) Description 07/13/2023 3:30 PM EST Immunization [facility] [address] [place] [id number] [facility] [place] [address] [place] [address] 07/13/2023 4:00 PM EST Nurse Only Ancillary [facility] [place] [address] [place] [address] Nurse Juan Diego Day [facility] [address] [facility] [address] 08/03/2023 5:20 PM EST Office Visit Family Practice [facility] [place] [address] [facility] [place] [address] Ghazala Duke PA-C [address] [facility] [address] [facility] [place] [address] 08/11/2023 1:00 PM EST Office Visit Rheumatology [place] [address] [place] [address] Krystian Villarreal MD [address] [facility] [place] [address] Scheduled Orders Name Type Priority Associated Diagnoses Orde r Schedule MAMMOGRAM SCREENING BILATERAL Medical Imaging Routine Breast cancer screening Expected: 10/05/2023, Expires: 08/04/2024 Scheduled Procedures Name Priority Associated Diagnoses Date/Ti me COLONOSCOPY FLEXIBLE PROXIMAL DIAGNOSTIC Recall Screen for colon cancer Health Maintenance Due Date Last Done Comments Hepatitis B (1 of 3 - 3-dose series) 1971 Pneumococcal Vaccine: Pediatrics (0 to 5 Years) and At-Risk Patients (6 to 64 Years) (1 - PCV) 1977 Zoster Vaccines (1 of 2) 1990 HPV/Co-Test 2001 Cologuard 02/22/2016 Fecal Occult Blood Test 02/22/2016 Sigmoidoscopy 02/22/2016 Depression, Most Recent Score >= 10 (will fire each visit until score < 10) 10/03/2019 10/02/2019 COVID-19 Vaccine (3 - Moderna risk series) 12/30/2020 12/02/2020, 11/04/2020 Mammogram 06/19/2022 06/19/2021, 11/30/2014 Influenza Vaccine (FLU shot) (#1) 2023 06/18/2021, 06/09/2019, 05/24/2017, Additional history exists GFR 04/22/2024 04/22/2023, 12/10/2021, 06/18/2021, Additional history exists IUD 7-Year 05/24/2024 05/24/2017 Cervical Cancer Screening 03/24/2025 Pap Smear 03/24/2025 03/24/2022, 05/31, 06/09/2019, Additional history exists Albumin/Creatinine Ratio 08/01/2025 08/01/2022 Diabetes Screening 04/22/2026 04/22/2023, 1 10/02/2021, 06/18/2021, Additional history exists Lipid Panel 06/18/2026 06/18/2021, 09/30, 10/08/2017, Additional history exists DTaP,Tdap,and Td Vaccines (3 - Td or Tdap) 10/23/2029 10/23/2019, 10/25/2014 Colonoscopy 12/19/2031 12/18/2021, 12/18/2021 Colorectal Cancer Screening 12/19/2031 GARDASIL-HPV IMMUNIZATION SERIES Aged Out No longer eligible based on patient's age to complete this topic MENINGOCOCCAL (MENACTRA/MENVEO) Aged Out No longer eligible based on patient's age to complete this topic documented as of this encounter Medical Devices Not on filedocumented as of this encounter Visit Diagnoses Diagnosis Breast cancer screening- Primary Breast screening, unspecified documented in this encounter Care Teams Supervisor Pyrotechnic Loading Relationship Specialty Start Date End Date Kaleigh Miramontes DO [address] [place] [address] PCP - General Family Medicine 10/25/14 documented as of this encounter
--- OUTSIDE RECORDS SUMMARY | 2023-08-17 03:03 | External Medical Summary ---
Author Name Unknown Address Unknown Organization K09:[facility] [place] [place] [address] Laboratory Report Ordering Provider Test Date Status ALYSON VAUGHAN 04/22/2023 15:36:42 Final Observation Date Value Abnormality Reference (Units ) Status WBC, Total 04/22/2023 15:36:42 6.82 4.00-10.8 0 (K/uL) Final RBC 04/22/2023 15:36:42 4.21 3.85-5.15 (M/uL) Final Hemoglobin 04/22/2023 15:36:42 11.1 Below low normal 12 .0-15.3 (g/dL) Final HCT 04/22/2023 15:36:42 35.3 Below low normal 36. 0-45.2 (%) Final MCV 04/22/2023 15:36:42 83.8 81.5-97.5 (fL) Final MCH 04/22/2023 15:36:42 26.4 27.0-34.0 (pg) Final MCHC 04/22/2023 15:36:42 31.4 32.0-36.0 (g/dL) Final RDW 04/22/2023 15:36:42 14.0 11.5-15.5 (%) Final Platelets 04/22/2023 15:36:42 288 140-400 (K /uL) Final MPV 04/22/2023 15:36:42 10.4 6.6-11.1 ( fL) Final Performing Location [facility] [place] [address]
--- OUTSIDE RECORDS SUMMARY | 2023-08-17 03:03 | External Medical Summary ---
Author Name Unknown Address Unknown Organization K09:[facility] [address] [place] [address] Laboratory Report Ordering Provider Test Date Status JONO VAUGHANANDREZ 04/22/2023 15:36:42 Final Observation Date Value Abnormality Reference (Units ) Status BUN 04/22/2023 15:36:42 17 6-20 (mg/dL) Final Creatinine 04/22/2023 15:36:42 0.8 0.5-1.0 (mg/dL) Final Glomerular filtration rate/1.73 sq M.predicted [Volume Rate/Area] in Serum, Plasma or Blood by Creatinine-based formula (CKD-EPI) 04/22/2023 15:36:42 >90 >=60 (mL/min) Final eGFR is calculated based on the CKD-EPI 2020 equation SODIUM 04/22/2023 15:36:42 136 135-146 (m mol/L) Final Potassium 04/22/2023 15:36:42 4.9 3.5-5.1 (m mol/L) Final Cl 04/22/2023 15:36:42 99 98-107 (mm ol/L) Final CO2 04/22/2023 15:36:42 25 22-32 (mmo l/L) Final Anion gap 04/22/2023 15:36:42 12 7-15 (mmol /L) Final Glucose 04/22/2023 15:36:42 102 70-120 (mg /dL) Final Albumin 04/22/2023 15:36:42 4.7 3.8-5.0 (g /dL) Final AST (Aspartate aminotransferase) 04/22/2023 15:36:42 20 10-35 (U/L) Final Alk Phos 04/22/2023 15:36:42 93 35-130 (U/ L) Final Bilirubin, Total 04/22/2023 15:36:42 0.2 <=1 .2 (mg/dL) Final Calcium 04/22/2023 15:36:42 9.8 8.4-10.2 ( mg/dL) Final Protein 04/22/2023 15:36:42 7.1 6.0-8.3 (g /dL) Final ALT (Alanine aminotransferase) 04/22/2023 15:36:42 20 10-35 (U/L) Final Performing Location [facility] [address] [place] [address]
--- OUTSIDE RECORDS SUMMARY | 2023-08-17 03:03 | External Medical Summary | Summary of Care ---
Author Name Unknown Organization [facility] Address [address] [place] [address] Phone [phone] Care Team Providers Care Clinical Nurse Specialist Name Role Phone Kaleigh Miramontes Primary Care Provider Reason for Visit * Reason Onset Date Comments Medication Administration 07/13/2023 Flu an d/or Pneumo Inj Encounter Details Date Type Department Care Team (Late st Contact Info) Description 07/13/2023 4:00 PM EST [facility] [address] [place] [address] [facility] [address] [place] [address] Medication Administration (Flu and/or Pneu... Allergies No known active allergiesdocumented as of [...] Date Food insecurity 04/07/2021 05/14/2022 Overview: Per [facility] Protocol documented as of this encounter (statuses as of 07/13/2023) Immunizations Name Administration Dates Next Due COVID-19 mRNA, LNP-s, No Pre serve, 2-Dose Series (Moderna) 12/02/2020,11/04/2020 COVID-19, MRNA-LNP, 23-24, P F, 30 MCG/0.3 mL, 12 YRS AND ABOVE, IM (PFIZER-Comirnaty) 07/13/2023 PPD 06/09/2019 Pneumococcal Conjugate Vacci ne, 20-valent ([id number]) 07/13/2023 SEASONAL INFLUENZA, PF, 6 M & [...] on file documented as of this encounter Patient Instructions * Patient Instructions* Altagracia Pete LPN - 07/13/2023 3:48 PM EST ~~PATIENT INSTRUCTIONS FOR PNEUMOCOCCAL VACCINE~~ Possible side effects of pneumococcal vaccine, (pneumonia shot), are usually mild and can include: 1. Soreness or redness at injection site 2. Low grade fever 3. Body aches You may use Tylenol/Acetaminophen as needed for these symptoms. LET YOUR DOCTOR KNOW IMMEDIATELY IF YOU HAVE DIFFICULTY BREATHING OR SWALLOWING, EXPERIENCE ITCHINGOF FEET OR HANDS, HAVE SWELLING OF EYES, FACE OR INSIDE OF NOSE. ~~PATIENT INSTRUCTIONS FOR FLU SHOT~~ Possible side effects of influenza vaccine, (flu shot), are usually mild and include: 1. Soreness or redness at injection site 2. Low grade fever 3. Body aches You may use Tylenol/Acetaminophen as needed for these symptoms. LET YOUR DOCTOR KNOW IMMEDIATELY IF YOU HAVE DIFFICULTY BREATHING OR SWALLOWING, EXPERIENCE ITCHINGOF FEET OR HANDS, HAVE SWELLING OF EYES, FACE OR INSIDE OF NOSE. documented in this encounter Progress Notes * Altagracia Pete LPN - 07/13/2023 3:48 PM EST Immunization Administration Documentation Time Out Procedure Performed: Yes Patient Identified (Ask Name/Date of ): Yes Does the patient have a fever greater than 101 degrees today? No Patient allergic to latex? No C Stock: No Immunization(s) verified: Yes, Immunization Name: Flu and Prevnar 20 (PCV20), VIS Sheet(s) given: Yes Verified Side and Site: Yes Verified Shot(s) with Parent(s)/Patient: Yes PRE - ADMINISTRATION DOCUMENTATION Are you experiencing any cold symptoms or fever? No Have you had Guillain-[place] Syndrome (an illness that causes paralysis) within the last 6 weeks? No Have you had the flu shot in the past? YES Have you ever had a reaction to the flu shot? No Altagracia Pete LPN, 07/13/2023 3:48 PM documented in this encounter Plan of Treatment Upcoming Encounters Date Type Department Care Team (Late st Contact Info) Description 08/03/2023 5:20 PM EST Office Visit Family Practice [facility] [address] [facility] [place] [address] Ghazala Duke PA-C [address] [facility] [place] [address] 08/11/2023 1:00 PM EST Office Visit Rheumatology [facility] [address] [employer] [place] [address] Krystian Villarreal MD [address] [employer] [place] [address] 10/08/2023 10:30 AM EST Imaging Radiology [address] [facility] [place] [address] Scheduled Procedures Name Priority Associated Diagnoses Date/Ti [...] for prophylactic vaccination and inoculation against influenza documented in this encounter Care Teams Clinical Nurse Specialist Relationship Specialty Start Date End Date Kaleigh Miramontes DO [address] [place] [address] PCP - General Family Medicine 10/25/14 documented as of this encounter
--- OUTSIDE RECORDS SUMMARY | 2023-08-17 03:03 | External Medical Summary | Summary of Care ---
Author Name Unknown Organization [facility] Address [address] [address] Phone [phone] Care Team Providers Care Generator Assembler Name Role Phone Kulwinder Farris Iris DO Primary Care Provider Reason for Visit * Reason Comments Rheum Follow Up RA Encounter Details Date Type Department Care Team Description 04/07/[address] 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 0 Active Lisinopril 20 MG Oral Tablet (Prinivil) TAKE 1 TABLET BY MOUTH EVERY DAY 90 Tablet 2 08/15/2022 Active cloNIDine HCl 0.1 MG Oral Tablet (Catapres)Indicat ions:Alcohol abuse, in remission,Elevate d blood pressure, situational,HTN, goal below 140/90 TAKE [...] BEFORE BEDTIME 90 Capsule 11 12/14/2022 Active Hydroxychloroquin e Sulfate 200 MG Oral Tablet (Plaquenil) TAKE 1 TABLET BY MOUTH EVERYDAY AT BEDTIME 30 Tablet 11 01/05/2023 Active Methotrexate 2.5 MG Oral TabletIndications :Rheumatoid arthritis involving multiple sites with positive rheumatoid factor (HCC),Encounter for long-term (current) use of medications Take 4 tabs at breakfast and 4 tabs with dinner once a week 40 Tablet 3 04/07/2023 Active Folic Acid 1 MG Oral TabletIndications :Rheumatoid arthritis involving multiple sites with positive rheumatoid factor (HCC),Encounter for long-term (current) use of medications Take 1 Tablet by mouth in the morning. 30 Tablet 5 04/07/2023 Active tiZANidine HCl 4 MG Oral Tablet (Zanaflex) Take 1 Tablet by mouth at bedtime as needed for Muscle spasms. 10 Tablet 0 04/07/2023 Active Doxepin HCl 25 MG Oral Capsule (SINEquan) 1 daily 0 10/26/2022 04/07/2023 Discontinue d(Medicatio n List Clean Up) documented as of this encounter (statuses as of 04/07/2023) Active Problems Problem Noted Date Rheumatoid arthritis involvi ng multiple sites with positive rheumatoid factor 11/10/2022 Encounter for long-term (current) use of medications 11/10/2022 IUD (intrauterine device) in place 06/18 Hydrocephalus 10/02/2019 Overview: shunt Alcohol abuse, in remission 01/13/2015 Anxiety 01/13/2015 Depression 01/13/2015 Insomnia 01/13/2015 HTN, goal below 140/90 Anxiety documented as of this encounter (statuses as of 04/07/2023) Resolved Problems Problem Noted Date Resolved Date Food insecurity 04/07/2021 05/14/2022 Overview: Per [facility] Protocol documented as of this encounter (statuses as of 04/07/2023) Immunizations Name Administration Dates Next Due COVID-19 mRNA, LNP-s, No Pre serve, 2-Dose Series (Moderna) 12/02/2020,11/04/2020 PPD 06/09/2019 Seasonal Influenza Virus Vac cine, Unspecified Formulation 06/18/2021 Seasonal Influenza, Quadriva lent, No Preserve, 6 Mons & Above, IM 06/09/2019,05/24/2017 Seasonal Influenza, Quadrivalent, No Preserve, I M 06/22/2016 Seasonal Influenza, Split, IIV3, With Preserve, Inj 05/30/2014 TDAP (age 10 and older)(Boostrix) 10/23/2019, documented as of this encounter Social History Tobacco Use Types Packs/Day Years Used Date Smoking Tobacco: Never Smokeless Tobacco: Never Alcohol Use Standard Drinks/Week Comments No 0 (1 standard drink = 0.6 oz pur e alcohol) Food Insecurity Answer Date Recorded Within the past 12 months, y ou worried that your food would run out before you got money to buy more. Never true 03/17/2022 Within the past 12 months, t he food you bought just didn't last and you didn't have money to get more. Never true 03/17/2022 Sex Assigned at Date Recorded Female 03/17/2022 6:10 PM E DT Job Start Date Occupation Industry Not on file Not on file Not on file documented as of this encounter Last Filed Vital Signs Vital Sign Reading Time Taken Comments Blood Pressure 112/62 04/07/2023 12:57 PM EDT Pulse - - Temperature - - Respiratory Rate - - Oxygen Saturation - - Inhaled Oxygen Concentration - - Weight 90.3 kg (199 lb) 04/07/2023 12:57 PM EDT Height - - Body Mass Index 38.86 03/16/2022 9:28 AM EDT documented in this encounter Progress Notes * Krystian Villarreal MD - 04/07/2023 1:11 PM EDT Images from the original note were not included. Assessment and Plan Rheumatoid arthritis involving multiple sites with positive rheumatoid factor (HCC) - Methotrexate; Take 4 tabs at breakfast and 4 tabs with dinner once a week - Folic Acid; Take 1 Tablet by mouth in the morning. - CBC with WBC Differential; Standing - Comprehensive Metabolic Panel; Standing Encounter for long-term (current) use of medications - Methotrexate; Take 4 tabs at breakfast and 4 tabs with dinner once a week - Folic Acid; Take 1 Tablet by mouth in the morning. - CBC with WBC Differential; Standing - Comprehensive Metabolic Panel; Standing Her low back pain is likely mechanical in nature but given she is having multiple diffuse joint pains with some swelling of her hands will get her started on methotrexate. Will do a prednisone taper as well. Plan: 1. Start methotrexate 8 tabs weekly and folic acid 1 mg daily 2. Do prednisone taper 3. Get labs after 1 month to methotrexate 4. Return to clinic in May Rheumatology Synopsis: [facility] RA SYNOPSIS Date of RA Diagnosis: 03/30/22 (04/07/2023 1:00 PM) Current Treatment: HCQ (04/07/2023 1:00 PM) 2009 Classification Criteria: Y (04/07/2023 1:00 PM) Seropositive or seronegative: Seropositive (04/07/2023 1:00 PM) RF and/or CCP: Dual Positive (04/07/2023 1:00 PM) Disease activity: Uncontrolled Patient History History of Present Illness HPI:53 year old female presented to rheumatology clinic for Rheum Follow Up (RA) She has noted increasing arthritis over the last few months. She has noted some swelling to her right hands. Ankle and feet always seem swollen. More lower back pain along with shoulders and neck. Noted a possible bone spur on the right foot. She went to [facility] for her back and had imaging - told had some mild degenerative disc disease. She does have some prednisone at home but has not used it. He had she has use in the past for her shoulders with benefit. She remains on Plaquenil. At lastvisit we had discussed possibly starting methotrexate pending course. She also has a lot a diffuse joint pains. ROS: Review of Systems was asked and the following other significant symptoms are present: poor appetite, numbness, tingling in fingers and toes, cramping in hands, joint pains, back pain, trouble sleeping Subjective Patient's past history, medications, and allergies were reviewed. Medications: Current Outpatient Medications Medication Instructions cloNIDine HCl 0.1 MG Oral Tablet (Catapres) TAKE 2 TABLETS BY MOUTH EVERY EVENING Gabapentin 300 MG Oral Capsule (Neurontin) TAKE 1 CAPSULE BY MOUTH IN THE MORNING, 1 AT NOON AND 1 BEFORE BEDTIME Hair/Skin/Nails 1250-7.5-7.5 MCG-MG-UNT Oral Tablet Chewable (Biotin w/ Vitamins C & E) Oral, Daily(AM) Hydroxychloroquine Sulfate 200 MG Oral Tablet (Plaquenil) TAKE 1 TABLET BY MOUTH EVERYDAY AT BEDTIME Lisinopril 20 MG Oral Tablet (Prinivil) TAKE 1 TABLET BY MOUTH EVERY DAY Multivitamin Women 50+ Oral Tablet Oral, Daily(AM) predniSONE 5 MG Oral Tablet (Deltasone) Take 15mg daily for 4 days, then 10mg daily for 4 days,then 5mg daily for 4 days then stop venlafaxine XR (EFFEXOR XR) 150 mg, Oral, Daily(AM) Viactiv Calcium Plus D 650-12.5-40 MG-MCG Oral Tablet Chewable (Calcium- Vitamin D-Vitamin K) Oral, BID(AM/PM) Objective Physical Exam BP 112/62 | Wt 90.3 kg (199 lb) | BMI 38.86 kg/m | BSA 1.96 m Constitutional: no acute distress HEENT: normal: normocephalic, atraumatic; no masses, tenderness, or adenopathy Eyes: PERRLA, sclera and conjunctiva normal Neck: supple, no adenopathy CV: normal rate and rhythm, no murmur, gallops or rub Chest: normal respiratory effort, lungs clear to auscultation and percussion Abdomen: normal: soft, bowel sounds normal, no masses, tenderness or organomegaly Musculoskeletal: Synovitis at the 2nd and 3rd MCPs, diffuse tenderness at multiple joints of the hands, feet along with elbows, wrist and shoulders Skin: warm, dry, intact: MSK/Joint exam (Homunculus) MSK Exam findings: Homunculus exam Studies: Labs and other studies reviewed with pertinent findings noted below: Disease Treatment Response CDAI Scoring - Patient Global: 70 mm Provider Global: 50 mm Tender: 34 Swollen: 4 CDAI: 40 CDAI (Clinical Disease Activity Index) [facility] Outcomes measures: Serial CDAI: Synopsis SmartLink 04/07/2023 13:00 CDAI CDAI 40 - Serial CDAI: - Yes - Remission: - No - high disease activity - Disease Activity: Worse/Uncontrolled On csDMARD: Yes On Biologic DMARD: No Vaccination status: COVID: Vaccine and/or Health maintenance status Incomplete Influenza:Vaccine complete for this season Pneumococcal:Vaccine and/or Health maintainance status Incomplete Zoster:Vaccine and/or Health Maintainance Incomplete Last Hepatitis and TB testing: Hepatitis B: Tested, result reviewed Hepatitis C: Tested, result reviewed PPD or TB-Gold: Tested, result reviewed Lab Results Component Value Date HBSAG Negative 10/15/2020 HEPB Negative 10/15/2020 HEPB 159.0 10/15/2020 HEPB Positive 10/15/2020 HEPB Immune to Hepatitis B Virus 10/15/2020 HCVAB Negative 10/15/2020 PPD INDURATION Date/Time Value Ref Range Status 06/11/2019 02:20 PM 0 mm Final - documented in this encounter Nursing Notes * Alaina Mcdaniel LPN - 04/07/2023 12:59 PM EDT Chief Complaint Patient presents with Rheum Follow Up RA documented in this encounter Plan of Treatment Upcoming Encounters Date Type Specialty Care Team Description 04/22/2023 Office Visit Family Medicine Ghazala Duke PA-C [address] [place] [address] 06/17/2023 Office Visit Rheumatology Krystian Villarreal MD [address] [facility] [place] [address] Scheduled Orders Name Type Priority Associated Diagnoses Orde r Schedule CBC WITH WBC DIFFERENTIAL Lab Routine Rheumatoid arthritis involving multiple sites with positive rheumatoid factor (HCC) Encounter for long-term (current) use of medications Every 2 Months for 6 Occurrences starting 04/07/2023 until 04/07/2024 COMPREHENSIVE METABOLIC PANEL Lab Routine Rheumatoid arthritis involving multiple sites with positive rheumatoid factor (HCC) Encounter for long-term (current) use of medications Every 2 Months for 6 Occurrences starting 04/07/2023 until 04/07/2024 Scheduled Procedures Name Priority Associated Diagnoses Date/Ti [...] 06/18/2021, 06/09/2019, 05/24/2017, Additional history exists GFR 08/01/2023 08/01/2022, 05/31, 10/15/2020, Additional history exists IUD 7-Year 05/24/2024 05/24/2017 Cervical Cancer Screening 03/24/2025 Pap Smear 03/24/2025 03/24/2022, 05/31, 06/09/2019, Additional history exists Albumin/Creatinine Ratio 08/01/2025 08/01/2022 Diabetes Screening 08/01/2025 08/01/2022, 1 , 10/15/2020, Additional history exists Lipid Panel 06/18/2026 06/18/2021, 09/30, 10/08/2017, Additional history exists DTaP,Tdap,and Td Vaccines (3 - Td or Tdap) 10/23/2029 10/23/2019, 10/25/2014 Colonoscopy 12/19/2031 12/18/2021, 12/18/2021 Colorectal Cancer Screening 12/19/2031 Hepatitis C Screening Completed 10/15/2020, 015 GARDASIL-HPV IMMUNIZATION SERIES Aged Out No longer eligible based on patient's age to complete this topic MENINGOCOCCAL (MENACTRA/MENVEO) Aged Out No longer eligible based on patient's age to complete this topic documented as of this encounter Medical Devices Not on filedocumented as of this encounter Visit Diagnoses Diagnosis Rheumatoid arthritis involving multiple sites with positive rheumatoid factor (HCC)- Primary Encounter for long-term (current) use of medications Encounter for long-term (current) use of other medications documented in this encounter Care Teams Generator Assembler Relationship Specialty Start Date End Date Kaleigh Miramontes DO [address] [place] [address] PCP - General Family Medicine 10/25/14 documented as of this encounter"
--- OUTSIDE RECORDS SUMMARY | 2023-08-17 03:03 | External Medical Summary | Summary of Care ---
Author Name Unknown Organization [facility] Address [address] [place] [address] Phone [phone] Care Team Providers Care Fire Prevention Chief Name Role Phone Kulwinder Kaleigh Simmons DO Primary Care Provider Reason for Visit * Reason Comments Outpatient Testing Encounter Details Date Type Department Care Team Description 04/22/2023 Laboratory Laboratory [facility] [place] [address] [place] [address] [facility] [address] [facility] [address] Rheumatoid arthritis involving multiple sites with positive rheumatoid factor (HCC); Encounter for long-term (current) use of medications Allergies No known active allergiesdocumented as of this encounter (statuses as of 04/22/2023) Medications Medication Sig Dispensed Refills Start Date [...] Muscle spasms. 10 Tablet 0 04/07/2023 Active documented as of this encounter (statuses as of 04/22/2023) Active Problems Problem Noted Date Rheumatoid arthritis involvi ng multiple sites with positive rheumatoid factor 11/10/2022 Encounter for long-term (current) use of medications 11/10/2022 IUD (intrauterine device) in place 06/18 Hydrocephalus 10/02/2019 Overview: shunt Alcohol abuse, in remission 01/13/2015 Anxiety 01/13/2015 Depression 01/13/2015 Insomnia 01/13/2015 HTN, goal below 140/90 Anxiety documented as of this encounter (statuses as of 04/22/2023) Resolved Problems Problem Noted Date Resolved Date Food insecurity 04/07/2021 05/14/2022 Overview: Per [facility] Protocol documented as of this encounter (statuses as of 04/22/2023) Immunizations Name Administration Dates Next Due COVID-19 mRNA, LNP-s, No Pre serve, 2-Dose Series (Moderna) 12/02/2020,11/04/2020 PPD 06/09/2019 Seasonal Influenza Virus Vac cine, Unspecified Formulation 06/18/2021 Seasonal Influenza, PF, 6 mo ns & Above, IM , (Flulaval) 06/09/2019,05/24/2017 Seasonal Influenza, Quadrivalent, No Preserve, I [...] got money to buy more. Never true 04/08/2023 Within the past 12 months, t he food you bought just didn't last and you didn't have money to get more. Never true 04/08/2023 Sex Assigned at Date Recorded Female 03/17/2022 6:10 PM E DT Job Start Date Occupation Industry Not on file Not on file Not on file documented as of this encounter Plan of Treatment Upcoming Encounters Date Type Specialty Care Team Description 06/17/2023 Office Visit Rheumatology Krystian Villarreal MD [address] [facility], [place] [phone] Pending Results Name Type Priority Associated Diagnoses Date /Time COMPREHENSIVE METABOLIC PANEL Lab Routine Rheumatoid arthritis involving multiple sites with positive rheumatoid factor (HCC) Encounter for long-term (current) use of medications 04/22/2023 3:36 PM EDT Scheduled Procedures Name Priority Associated Diagnoses Date/Ti [...] Not on filedocumented as of this encounter Procedures Procedure Name Priority Date/Time Associated Diagnosis Comments DIFFERENTIAL, AUTOMATED Routine 04/22/2023 3:36 PM EDT Rheumatoid arthritis involving multiple sites with positive rheumatoid factor (HCC) Encounter for long-term (current) use of medications CBC WITH WBC DIFFERENTIAL Routine 04/22/2023 3:36 PM EDT Rheumatoid arthritis involving multiple sites with positive rheumatoid factor (HCC) Encounter for long-term (current) use of medications CBC Routine 04/22/2023 3:36 PM EDT Rheumatoid arthritis involving multiple sites with positive rheumatoid factor (HCC) Encounter for long-term (current) use of medications documented in this encounter Results * (ABNORMAL) DIFFERENTIAL, AUTOMATED (04/22/2023 3:36 PM EDT) WBC 6.82 4.00 - 10.80 K/uL 04/22/2023 3:45 PM EDT [facility] [place] 56-02 Neutrophils % 79.7(H) 40.0 - 75.0 % 04/22/2023 3:45 PM EDT [facility] [place] 56-02 Lymphocytes % 13.9(L) 18.0 - 42.0 % 04/22/2023 3:45 PM EDT [facility] [place] 56-02 Monocytes % 6.2 1.0 - 11.0 % 04/22/2023 3:45 PM EDT [facility] 56-02 Eosinophils % 0.1 0.0 - 6.0 % 04/22/2023 3:45 PM EDT [facility] 56-02 Basophils % 0.1 0.0 - 2.0 % 04/22/2023 3:45 PM EDT [facility] [place] 56-02 Absolute Neutrophils 5.43 1.80 - 7.70 K/uL 04/22/2023 3:45 PM EDT [facility] [place] 56-02 Absolute Lymphocytes 0.95(L) 1.00 - 4.80 K/ul 04/22/2023 3:45 PM EDT [facility] Absolute Monocytes 0.42 0.00 - 1.10 K/uL 04/22/2023 3:45 PM EDT [facility] Absolute Eosinophils 0.01 0.00 - 0.70 K/uL 04/22/2023 3:45 PM EDT [facility] Absolute Basophils 0.01 0.00 - 0.20 K/uL 04/22/2023 3:45 PM EDT [facility] Blood Venous blood specimen / Unknown Venipuncture / Unknown 04/22/2023 3:36 PM EDT 04/22/2023 3:36 PM EDT Krystian Villarreal MD LAB BLOOD ORDERABLE S [facility] [address] [place] [address] * (ABNORMAL) CBC (04/22/2023 3:36 PM EDT) WBC 6.82 4.00 - 10.80 K/uL 04/22/2023 3:45 PM EDT [facility] RBC 4.21 3.85 - 5.15 M/uL 04/22/2023 3:45 PM EDT [facility] HGB 11.1(L) 12.0 - 15.3 g/dL 04/22/2023 3:45 PM EDT [facility] HCT 35.3(L) 36.0 - 45.2 % 04/22/2023 3:45 PM EDT [facility] MCV 83.8 81.5 - 97.5 fL 04/22/2023 3:45 PM EDT [facility] MCH 26.4 27.0 - 34.0 pg 04/22/2023 3:45 PM EDT [facility] MCHC 31.4 32.0 - 36.0 g/dL 04/22/2023 3:45 PM EDT [facility] RDW 14.0 11.5 - 15.5 % 04/22/2023 3:45 PM EDT [facility] PLT 288 140 - 400 K/uL 04/22/2023 3:45 PM EDT [facility] MPV 10.4 6.6 - 11.1 fL 04/22/2023 3:45 PM EDT [facility] Blood Venous blood specimen / Unknown Venipuncture / Unknown 04/22/2023 3:36 PM EDT 04/22/2023 3:36 PM EDT Krystian Villarreal MD LAB BLOOD ORDERABLE S [facility] [address] [facility] [address] documented in this encounter Visit Diagnoses Diagnosis Rheumatoid arthritis involving multiple sites with positive rheumatoid factor (HCC) Encounter for long-term (current) use of medications Encounter for long-term (current) use of other medications documented in this encounter Care Teams Fire Prevention Chief Relationship Specialty Start Date End Date Kaleigh Miramontes DO [address] [facility] [address] PCP - General Family Medicine 10/25/14 documented as of this encounter
--- OUTSIDE RECORDS SUMMARY | 2023-08-17 03:03 | External Medical Summary ---
Author Name Unknown Address Unknown Organization [id number]:[facility] [address] [place] [address] Laboratory Report Ordering Provider Test Date Status ALYSON VAUGHAN 04/22/2023 15:36:42 Final Observation Date Value Abnormality Reference (Units ) Status SYNC LEUKOCYTES IN BLOOD BY AUTOMATED COUNT 04/22/2023 15:36:42 6.82 4.00-10.80 (K/uL) Final Segs 04/22/2023 15:36:42 79.7 Above high normal 40.0-75.0 (%) Final Lymphs % 04/22/2023 15:36:42 13.9 Below low normal 18.0-42.0 (%) Final Monos 04/22/2023 15:36:42 6.2 1.0-11.0 (%) Final Eosinophils 04/22/2023 15:36:42 0.1 0.0-6.0 (%) Final Basos 04/22/2023 15:36:42 0.1 0.0-2.0 (%) Final Absolute Segs 04/22/2023 15:36:42 5.43 1.80-7.70 (K/uL) Final Lymphs, absolute 04/22/2023 15:36:42 0.95 Below low normal 1.00-4.80 (K/ul) Final Monos, Abs 04/22/2023 15:36:42 0.42 0.00-1.10 (K/uL) Final Eos, Abs 04/22/2023 15:36:42 0.01 0.00-0.70 (K/uL) Final Basos, Abs 04/22/2023 15:36:42 0.01 0.00-0.20 (K/uL) Final Performing Location [facility] [address] [place] [address]
--- OUTSIDE RECORDS SUMMARY | 2023-08-17 03:03 | External Medical Summary ---
Author Name Unknown Address Unknown Organization [id number]:[facility] [address] [place] [address] Laboratory Report Ordering Provider Test Date Status ALEXUSTAMERATRISTENANDREZ 07/13/2023 15:42:25 Final Observation Date Value Abnormality Reference (Units ) Status WBC, Total 07/13/2023 15:42:25 5.55 4.00-10.8 0 (K/uL) Final RBC 07/13/2023 15:42:25 4.08 3.85-5.15 (M/uL) Final Hemoglobin 07/13/2023 15:42:25 11.0 Below low normal 12 .0-15.3 (g/dL) Final HCT 07/13/2023 15:42:25 34.5 Below low normal 36. 0-45.2 (%) Final MCV 07/13/2023 15:42:25 84.6 81.5-97.5 (fL) Final MCH 07/13/2023 15:42:25 27.0 27.0-34.0 (pg) Final MCHC 07/13/2023 15:42:25 31.9 32.0-36.0 (g/dL) Final RDW 07/13/2023 15:42:25 15.5 11.5-15.5 (%) Final Platelets 07/13/2023 15:42:25 264 140-400 (K /uL) Final MPV 07/13/2023 15:42:25 11.8 6.6-11.1 ( fL) Final Performing Location [facility] [address] [place] [address]
--- OUTSIDE RECORDS SUMMARY | 2023-08-17 03:03 | External Medical Summary | Summary of Care ---
Author Name Unknown Organization [facility] Address [address] [place] [address] Phone [phone] Care Team Providers Care Chemical Process Operator Name Role Phone Kaleigh Miramontes DO Primary Care Provider Reason for Visit * Reason Onset Date Comments Order Request 07/05/2023 Encounter Details Date Type Department Care Team (Late st Contact Info) Description 07/05/2023 Telephone Family Practice [facility] [address] [place] [address] Kaleigh Miraomntes DO [address] [place] [address] Order Request Allergies No known active allergiesdocumented as of this encounter (statuses as of 07/09/2023) Medications Medication Sig Dispensed Refills Start Date [...] as of this encounter (statuses as of 07/09/2023) Active Problems Problem Noted Date Diagnosed Date Rheumatoid arthritis involvi ng multiple sites with positive rheumatoid factor 11/10/2022 Encounter for long-term (current) use of medicat ions 11/10/2022 IUD (intrauterine device) in place 06/18/2021 Hydrocephalus 10/02/2019 Overview: shunt Alcohol abuse, in remission 01/13/2015 Anxiety 01/13/2015 Depression 01/13/2015 Insomnia 01/13/2015 HTN, goal below 140/90 Anxiety documented as of this encounter (statuses as of 07/09/2023) Resolved Problems Problem Noted Date Diagnosed Date Resolved Date Food insecurity 04/07/2021 05/14/2022 Overview: Per [facility] Protocol documented as of this encounter (statuses as of 07/09/2023) Immunizations Name Administration Dates Next Due COVID-19 [...] Telephone Encounter - Mira Odom OSA - 07/09/2023 8:22 AM EST Pt schedule 10/08 * Telephone Encounter - Mira Odom OSA [...] wish to have their order completed at? [email or web address] Fax Number, if applicable: N/A Call Back Number: [phone] Last Mamm[address] order if [...] wish to have their order completed at? [facility] Fax Number, if applicable: N/A Call Back Number: [phone] Pt scheduled at 07/[address] order [...] Info) Description 07/13/2023 3:30 PM EST Immunization [facility] [address] [place] [address] [facility] [place] [address] [place] [address] 07/13/2023 4:00 PM EST Nurse Only Ancillary [place] [facility] [place] [address] [facility] [place] [address] Nurse Shay [facility] [place] [address] [place] [address] 08/03/2023 5:20 PM EST Office Visit Family Practice Anahi Valdes [place] [address] [place] [place] [address] Ghazala Duke PA-C [address] [place] [address] 08/11/2023 1:00 PM EST Office Visit Rheumatology [place] [address] [facility] [place] [address] Krystian Villarreal MD [address] [place] [address] 10/08/2023 10:30 AM EST Imaging Radiology [facility] 1st [facility] [place] [address] [place] [address] Scheduled Orders Name Type Priority Associated Diagnoses [...] 05/24/2017, Additional history exists GFR 04/22/2024 04/22/2023, 1210/2021, 06/18/2021, Additional history exists IUD 7-Year 05/24/2024 [...] unspecified documented in this encounter Care Teams Chemical Process Operator Relationship Specialty Start Date End Date Kaleigh Miramontes DO [address] [place] [address] PCP - General Family Medicine 10/25/14 documented as of this encounter
--- OUTSIDE RECORDS SUMMARY | 2023-08-17 03:03 | External Medical Summary | Summary of Care ---
Author Name Unknown Organization [facility] Address [address] [facility] [address] Phone [phone] Care Team Providers Care Printing Technician Name Role Phone Kulwinder Farris Iris DO Primary Care Provider Reason for Visit * Reason Comments Rheum Follow Up RA Encounter Details Date Type Department Care Team Description 04/07/2023 Office Visit [facility]umat[facility] [address] [facility] [address] Krystian Villarreal [facility] [address] [facility] [address] Rheumatoid arthritis involving multiple sites with positive rheumatoid factor (HCC)*; Encounter for long-term (current) use of medications Allergies No known active allergiesdocumented as of this encounter (statuses as of 04/08/2023) Medications Medication Sig Dispensed Refills Start Date [...] as of this encounter (statuses as of 04/08/2023) Active Problems Problem Noted Date Rheumatoid arthritis involvi ng multiple sites with positive rheumatoid factor 11/10/2022 Encounter for long-term (current) use of medications 11/10/2022 IUD (intrauterine device) in place 06/18 Hydrocephalus 10/02/2019 Overview: shunt Alcohol abuse, 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 She went to [facility] for her back and had imaging - [...] CDAI: 40 CDAI (Clinical Disease Activity Index) [facility] Outcomes measures: Serial CDAI: Synopsis Smart[facility] 04/07/2023 [...] Family Medicine Ghazala Duke PA-C [address] [place] [address] 06/17/2023 Office Visit Rheumatology Krystian Villarreal MD [address] [facility] [place] [address] Scheduled Orders Name Type Priority Associated Diagnoses [...] medications documented in this encounter Care Teams Printing Technician Relationship Specialty Start Date End Date Kaleigh Miramontes DO [address] [place] [address] PCP - General Family Medicine 10/25/14 documented as of this encounter"
--- OUTSIDE RECORDS SUMMARY | 2023-08-17 03:03 | External Medical Summary | Summary of Care ---
Author Name Unknown Organization [facility] Address [address] [place] [address] Phone [phone] Care Team Providers Care Route Returner Name Role Phone Kaleigh Miramontes DO Primary Care Provider Reason for Visit * Reason Onset Date Comments Order Request 07/05/2023 Encounter Details Date Type Department Care Team (Late st Contact Info) Description 07/05/2023 Telephone Family Practice [facility] 200 [place] [address] Kaleigh Miramontes DO [address] [place] [address] Order Request Allergies No known active allergiesdocumented as of this encounter (statuses as of 07/06/2023) Medications Medication Sig Dispensed Refills Start Date [...] as of this encounter (statuses as of 07/06/2023) Active Problems Problem Noted Date Diagnosed Date Rheumatoid arthritis involvi ng multiple sites with positive rheumatoid factor 11/10/2022 Encounter for long-term (current) use of medicat ions 11/10/2022 IUD (intrauterine device) in place 06/18/2021 Hydrocephalus 10/02/2019 Overview: shunt Alcohol abuse, in remission 01/13/2015 Anxiety 01/13/2015 Depression 01/13/2015 Insomnia 01/13/2015 HTN, goal below 140/90 Anxiety documented as of this encounter (statuses as of 07/06/2023) Resolved Problems Problem Noted Date Diagnosed Date Resolved Date Food insecurity 04/07/2021 05/14/2022 Overview: [facility] Protocol documented as of this encounter (statuses as of 07/06/2023) Immunizations Name Administration Dates Next Due COVID-19 [...] 07/06/2023 9:09 AM EST My g sent 11/7 * Telephone Encounter - Fadia Malave LPN [...] wish to have their order completed at? [facility] Fax Number, if applicable: N/A Call Back Number: [phone] Last Mammo [address] order if [...] wish to have their order completed at? [facility] Fax Number, if applicable: N/A Call Back Number: [phone] Pt scheduled at 07/[address] order [...] Info) Description 07/13/2023 3:30 PM EST Immunization [facility] [address] [place] [address] [facility] [address] [place] [address] 07/13/2023 4:00 PM EST Nurse Only Ancillary [facility] [address] [place] [address] Nurse Juan Diego Day Prac [address] [address] 08/03/2023 5:20 PM EST Office Visit Family Practice [facility] [address] [facility] [place] [address] Ghazala Duke PA-C [address] [facility] [place] [address] 08/11/2023 1:00 PM EST Office Visit Rheumatology [address] [place] [address] Krystian Villarreal MD [address] [place] [address] [place] [address] Scheduled Orders Name Type Priority Associated Diagnoses [...] 05/24/2017, Additional history exists GFR 04/22/2024 04/22/2023, 10/2021, 06/18/2021, Additional history [...] unspecified documented in this encounter Care Teams Route Returner Relationship Specialty Start Date End Date Kaleigh Miramontes DO [address] [place] [address] PCP - General Family Medicine 10/25/14 documented as of this encounter
--- OUTSIDE RECORDS SUMMARY | 2023-08-17 03:03 | External Medical Summary ---
Author Name Unknown Address Unknown Organization [facility] [address] [place] [address] Laboratory Report Ordering Provider Test Date Status ALYSON VAUGHAN 07/13/2023 15:42:25 Final Observation Date Value Abnormality Reference (Units ) Status BUN 07/13/2023 15:42:25 18 6-20 (mg/dL) Final Creatinine 07/13/2023 15:42:25 0.8 0.5-1.0 (mg/dL) Final Glomerular filtration rate/1.73 sq M.predicted [Volume Rate/Area] in Serum, Plasma or Blood by Creatinine-based formula (CKD-EPI) 07/13/2023 15:42:25 85 >=60 (mL/min) Final eGFR is calculated based on the CKD-EPI 2020 equation SODIUM 07/13/2023 15:42:25 136 135-146 (m mol/L) Final Potassium 07/13/2023 15:42:25 4.5 3.5-5.1 (m mol/L) Final Cl 07/13/2023 15:42:25 100 98-107 (mm ol/L) Final CO2 07/13/2023 15:42:25 25 22-32 (mmo l/L) Final Anion gap 07/13/2023 15:42:25 11 7-15 (mmol /L) Final Glucose 07/13/2023 15:42:25 88 70-120 (mg /dL) Final Albumin 07/13/2023 15:42:25 4.5 3.8-5.0 (g /dL) Final AST (Aspartate aminotransferase) 07/13/2023 15:42:25 26 10-35 (U/L) Final Alk Phos 07/13/2023 15:42:25 88 35-130 (U/ L) Final Bilirubin, Total 07/13/2023 15:42:25 0.2 <=1 .2 (mg/dL) Final Calcium 07/13/2023 15:42:25 9.6 8.4-10.2 ( mg/dL) Final Protein 07/13/2023 15:42:25 7.0 6.0-8.3 (g /dL) Final ALT (Alanine aminotransferase) 07/13/2023 15:42:25 19 10-35 (U/L) Final [facility]forming [facility] [place] [address]
--- OUTSIDE RECORDS SUMMARY | 2023-08-17 03:03 | External Medical Summary | Summary of Care ---
Author Name Unknown Organization [facility] Address [address] [place] [address] Phone [phone] Care Team Providers Care Upholstery Bundler Name Role Phone Kaleigh Miramontes DO Primary Care Provider Reason for Visit * Reason Comments eRx-Medication Refill Encounter Details Date Type Department Care Team (Late st Contact Info) Description 05/24/2023 Refill Family Practice [facility] [address] [place] [address] Kaleigh Miramontes DO [address] [place] [address] Allergies No known active allergiesdocumented as of this encounter (statuses as of 08/11/2023) Medications Medication Sig Dispensed Refills Start Date [...] EVERY DAY 90 Tablet 0 05/25/2023 Active Lisinopril 20 MG Oral Tablet (Prinivil) TAKE 1 TABLET BY MOUTH EVERY DAY 90 Tablet 2 08/15/2022 3 Discontinued documented as of this encounter (statuses as of 08/11/2023) Active Problems Problem Noted Date Diagnosed Date Rheumatoid arthritis involvi ng multiple sites with positive rheumatoid factor 11/10/2022 Encounter for long-term (current) use of medicat ions 11/10/2022 IUD (intrauterine device) in place 06/18/2021 Hydrocephalus 10/02/2019 Overview: shunt Alcohol abuse, in remission 01/13/2015 Anxiety 01/13/2015 Depression 01/13/2015 Insomnia 01/13/2015 HTN, goal below 140/90 Anxiety documented as of this encounter (statuses as of 08/11/2023) Resolved Problems Problem Noted Date Diagnosed Date Resolved Date Food insecurity 04/07/2021 05/14/2022 Overview: Per [facility] Protocol documented as of this encounter (statuses as of 08/11/2023) Immunizations Name Administration Dates Next Due COVID-19 mRNA, LNP-s, No Pre serve, 2-Dose Series (Moderna) 12/02/2020,11/04/2020 PPD 06/09/2019 Seasonal Influenza Virus Vac cine, Unspecified Formulation 06/18/2021 Seasonal Influenza, PF, 6 M & above, IM , (FluLaval or Fluzone) 06/09/2019,05/24/2017 Seasonal Influenza, Quadrivalent, No Preserve, I [...] encounter Miscellaneous Notes * Telephone Encounter - Radha, Poli Rivera - 08/11/2023 2:27 PM EST Received message from [facility] regarding patient needing appointment. Patient was notified. Successfully contacted patient and provided [facility] message. * Telephone Encounter - Jane Rodriguez [facility] - 05/25/2023 5:51 AM EDTSigned Prescriptions: Disp Refills Lisinopril 20 MG Oral Tablet (Prinivil) 90 Tab*0 Sig: TAKE 1 TABLET BY MOUTH EVERY DAY Authorizing Provider: KALEIGH MIRAMONTES Ordering User: JANE RODRIGUEZ * Telephone Encounter - Jane Rodriguez [facility] - 05/25/2023 5:51 AM EDT Please contact patient so that an appointment can be scheduled with her PRIMARY CARE provider. Refill authorized to hold patient over in the mean time. Last Visit: 03/24/2022 (in office), 05/12/2021 (telemedicine) Next Visit: Visit date not found Thank you, Jane Rodriguez, PharmD. Clinical Pharmacist [facility] ([facility]) (formerly Telepharmacy) 05/25/2023, 5:51 AM documented in this encounter Plan of Treatment Upcoming Encounters Date Type Department Care Team (Late st Contact Info) Description 10/08/2023 10:30 AM EST Imaging Radiology [address] [place] [address] Scheduled Procedures Name Priority Associated Diagnoses Date/Ti [...] 10) 10/03/2019 10/02/2019 Mammogram 06/19/2022 06/19/2021, 11/30/2014 IUD 7-Year 05/24/2024 05/24/2017 GFR 07/13/2024 07/13/2023, 03/31, 08/01/2022, Additional history exists Cervical Cancer Screening 03/24/2025 Pap Smear 03/24/2025 03/24/2022, 05/31, 06/09/2019, Additional history exists Albumin/Creatinine Ratio 08/01/2025 08/01/2022 Lipid Panel 06/18/2026 06/18/2021, 09/30, 10/08/2017, Additional history exists Diabetes Screening 07/13/2026 07/13/2023, 0 04/22/2023, 08/01/2022, Additional history exists Colonoscopy 12/19/2031 12/18/2021, 12/18/2021 Colorectal Cancer Screening 12/19/2031 DTaP,Tdap,and Td Vaccines (4 - Td or Tdap) 08/08/2033 08/08/2023, 10/23/2019, 10/25/2014 COVID-19 Vaccine Completed 07/13/2023, 12/2020, 11/04/2020 Influenza [...] Not on filedocumented as of this encounter Care Teams Upholstery Bundler Relationship Specialty Start Date End Date Kaleigh Miramontes DO [address] [place] [address] PCP - General Family Medicine 10/25/14 documented as of this encounter
--- OUTSIDE RECORDS SUMMARY | 2023-08-17 03:03 | External Medical Summary ---
Author Name Unknown Address Unknown Organization [facility] [address] [place] [address] Laboratory Report Ordering Provider Test Date Status ALEXUSTAMERATRISTENANDREZ 07/13/2023 15:42:25 Final Observation Date Value Abnormality Reference (Units ) Status SYNC LEUKOCYTES IN BLOOD BY AUTOMATED COUNT 07/13/2023 15:42:25 5.55 4.00-10.80 (K/uL) Final Segs 07/13/2023 15:42:25 58.4 40.0-75.0 (%) Final Lymphs % 07/13/2023 15:42:25 25.6 18.0-42.0 (%) Final Monos 07/13/2023 15:42:25 11.2 Above high normal 1.0-11.0 (%) Final Eosinophils 07/13/2023 15:42:25 4.3 0.0-6.0 (%) Final Basos 07/13/2023 15:42:25 0.5 0.0-2.0 (%) Final Absolute Segs 07/13/2023 15:42:25 3.24 1.80-7.70 (K/uL) Final Lymphs, absolute 07/13/2023 15:42:25 1.42 1.00-4.80 (K/ul) Final Monos, Abs 07/13/2023 15:42:25 0.62 0.00-1.10 (K/uL) Final Eos, Abs 07/13/2023 15:42:25 0.24 0.00-0.70 (K/uL) Final Basos, Abs 07/13/2023 15:42:25 0.03 0.00-0.20 (K/uL) Final Performing Location [facility] [address] [place] [address]
--- OUTSIDE RECORDS SUMMARY | 2023-08-17 03:03 | External Medical Summary | Summary of Care ---
Author Name Unknown Organization [facility] Address [address] [place] [address] Phone [phone] Care Team Providers Care Electric Crane Operator Name Role Phone Kaleigh Miramontes DO Primary Care Provider Reason for Visit * Reason Onset Date Comments Health Maintenance 05/21/2023 Encounter Details Date Type Department Care Team Description 05/21/[address] [facility] [address] [facility] [place] [address] Kaleigh Miramontes DO 200 [place] [address] Health Maintenance Allergies No known active allergiesdocumented as of this encounter (statuses as of 05/21/2023) Medications Medication Sig Dispensed Refills Start Date [...] as of this encounter (statuses as of 05/21/2023) Active Problems Problem Noted Date Rheumatoid arthritis involvi ng multiple sites with positive rheumatoid factor 11/10/2022 Encounter for long-term (current) use of medications 11/10/2022 IUD (intrauterine device) in place 06/18 Hydrocephalus 10/02/2019 Overview: shunt Alcohol abuse, in remission 01/13/2015 Anxiety 01/13/2015 Depression 01/13/2015 Insomnia 01/13/2015 HTN, goal below 140/90 Anxiety documented as of this encounter (statuses as of 05/21/2023) Resolved Problems Problem Noted Date Resolved Date Food insecurity 04/07/2021 05/14/2022 Overview: Per [facility] Protocol documented as of this encounter (statuses as of 05/21/2023) Immunizations Name Administration Dates Next Due COVID-19 [...] encounter Miscellaneous Notes * Telephone Encounter - Lizzie LAUREN Montero - 05/21/2023 10:27 AM EDT Care Gaps Comprehensive Care Outreach Last Office/Telemedicine Visit: 03/24/2022 (in office), 05/12/2021 (telemedicine) Next Office Visit: Visit date not found Hemoglobin AIC Results: No results found for: HEMOGLOBIN A1C Reviewed Health Maintenance below: Health Maintenance Topic Date Due Hepatitis B (1 of 3 - 3-dose series) Never done Pneumococcal Vaccine: Pediatrics (0 to 5 Years) and At-Risk Patients (6 to 64 Years) (1 - PCV) Never done Zoster Vaccines (1 of 2) Never done Depression, Most Recent Score >= 10 (will fire each visit until score < 10) 10/03/2019 COVID-19 Vaccine (3 - Moderna risk series) 12/30/2020 Mammogram 06/19/2022 Influenza Vaccine (FLU shot) (1) 04/30/2023 Mamm ov Care Gap Outreach Action Taken: Unable to reach won't ring through my g sent documented in this encounter Plan of Treatment Upcoming Encounters Date Type Specialty Care Team Description 06/17/2023 Office Visit Rheumatology Krystian Villarreal MD [address] [place] [address] Scheduled Procedures Name Priority Associated Diagnoses Date/Ti [...] 05/24/2017, Additional history exists GFR 04/22/2024 04/22/2023, 12/0 10/2021, 06/18/2021, Additional history exists IUD 7-Year [...] filedocumented as of this encounter Care Teams Electric Crane Operator Relationship Specialty Start Date End Date Kaleigh Miramontes DO [address] [place] [address] PCP - General Family Medicine 10/25/14 documented as of this encounter
--- OUTSIDE RECORDS SUMMARY | 2023-08-17 03:04 | External Medical Summary | Summary of Care ---
Author Name Unknown Organization [facility] Address [address] [place] [address] Phone [phone] Care Team Providers Care Building Equipment Operator Name Role Phone Kaleigh Miramontes DO Primary Care Provider Reason for Visit * Reason Onset Date Comments Referral 03/25/2023 Encounter Details Date Type Department Care Team Description 03/25/2023 Telephone Family Practice [facility] [address] [facility] [place] [address] Kaleigh Miramontes DO [address] [place] [address] Referral Allergies No known active allergiesdocumented as of this encounter (statuses as of 03/26/2023) Medications Medication Sig Dispensed Refills Start Date [...] EVERY EVENING 270 Tablet 2 08/16/2022 Active Doxepin HCl 25 MG Oral Capsule (SINEquan) 1 daily 0 10/26/2022 Active predniSONE 5 MG Oral Tablet (Deltasone) [...] AT BEDTIME 30 Tablet 11 01/05/2023 Active documented as of this encounter (statuses as of 03/26/2023) Active Problems Problem Noted Date Rheumatoid arthritis involvi ng multiple sites with positive rheumatoid factor 11/10/2022 Encounter for long-term (current) use of medications 11/10/2022 IUD (intrauterine device) in place 06/18 Hydrocephalus 10/02/2019 Overview: shunt Alcohol abuse, in remission 01/13/2015 Anxiety 01/13/2015 Depression 01/13/2015 Insomnia 01/13/2015 HTN, goal below 140/90 Anxiety documented as of this encounter (statuses as of 03/26/2023) Resolved Problems Problem Noted Date Resolved Date Food insecurity 04/07/2021 05/14/2022 Overview: Per [facility] Protocol documented as of this encounter (statuses as of 03/26/2023) Immunizations Name Administration Dates Next Due COVID-19 [...] encounter Miscellaneous Notes * Telephone Encounter - JOÃO Francis - 03/26/2023 11:07 AM EDT lmom 03/26 * Telephone Encounter - Maria Esther Cheek LPN - 03/25/2023 4:19 PM EDT Provider to address: please schedule patient for a visit with pcp's office for skin check. Derm is backed up and has recommended that patients see PCP office for skin check and PCP can then place a referral or consult with derm for follow up. Reason for Call: Referral Contact: Telephone Call Contact Type: Orders Outcome: forwarded to scheduling to get patient in with PCP for skin check Total Time including non face to face (minutes): 5 * Telephone Encounter - JOÃO Guerrero - 03/25/2023 3:21 PM EDT Has the patient been seen for this problem? (Y/N)?: N If No, an appt needs to be scheduled before a referral will be placed (exception: proceed with referral request if referral request is for a yearly routine appointment with speciality) Patient Name: Sherrell Talbert Patient Primary care provider: Kaleigh Miramontes, DO Does this need to be an insurance referral (Y/N)?: If Yes, does the insurance referral need to be placed into the [employer] system? Name of preferred specialist: Type of specialist: Scada Technician Location of specialist: Specialist's Phone #: Specialist's Fax #: Reason for visit: Pt has things pt would like looked at on pt's back Date of visit: documented in this encounter Plan of Treatment Upcoming Encounters Date Type Specialty Care Team Description 06/17/2023 Office Visit Rheumatology Krystian Villarreal MD [address] [place] [address] Scheduled Procedures Name Priority Associated Diagnoses Date/Ti [...] filedocumented as of this encounter Care Teams Building Equipment Operator Relationship Specialty Start Date End Date Kaleigh Miramontes DO [address] [place] [address] PCP - General Family Medicine 10/25/14 documented as of this encounter
--- OUTSIDE RECORDS SUMMARY | 2023-08-17 03:04 | External Medical Summary | Summary of Care ---
Author Name Unknown Organization [facility] [address] [address] Phone [phone] Care Team Providers Care Class B Truck Driver Name Role Phone Kulwinder Farris Iris DO Primary Care Provider Reason for Visit * Reason Comments Rheum Follow Up RA Encounter Details Date Type Department Care Team Description 04/07/2023 Office Visit Rheumatology [facility] [address] [address] Krystian Villarreal MD [address] [facility] [address] [address] Rheumatoid arthritis involving multiple sites with positive [...] Return to clinic in May Rheumatology Synopsis: [facility] RA SYNOPSIS Date of RA Diagnosis: 03/30/22 [...] on the right foot. She went to [facility] for her back and had imaging - [...] CDAI: 40 CDAI (Clinical Disease Activity Index) [facility] Outcomes measures: Serial CDAI: Synopsis SmartLink 04/07/2023 [...] Family Medicine Ghazala Duke PA-C [address] [address] 06/17/2023 Office Visit Rheumatology Krystian Villarreal MD [address] [facility] [address] [address] Scheduled Orders Name Type Priority Associated Diagnoses [...] medications documented in this encounter Care Teams Class B Truck Driver Relationship Specialty Start Date End Date Kaleigh Miramontes DO [address] [place] [address] PCP - General Family Medicine 10/25/14 documented as of this encounter"
--- OUTSIDE RECORDS SUMMARY | 2023-08-17 03:04 | External Medical Summary | Summary of Care ---
Author Name Unknown Organization [facility] Address [address] [place] [address] Phone [phone] Care Team Providers Care Bridges Supervisor Name Role Phone Kaleigh Miramontes DO Primary Care Provider Reason for Visit * Reason Onset Date Comments Referral 03/25/2023 Encounter Details Date Type Department Care Team Description 03/25/2023 Telephone Family Practice [facility] [address] [address] Kaleigh Miramontes DO [address] [place] [address] Referral Allergies No known active allergiesdocumented as of this encounter (statuses as of 03/29/2023) Medications Medication Sig Dispensed Refills Start Date [...] as of this encounter (statuses as of 03/29/2023) Active Problems Problem Noted Date Rheumatoid arthritis involvi ng multiple sites with positive rheumatoid factor 11/10/2022 Encounter for long-term (current) use of medications 11/10/2022 IUD (intrauterine device) in place 06/18 Hydrocephalus 10/02/2019 Overview: shunt Alcohol abuse, in remission 01/13/2015 Anxiety 01/13/2015 Depression 01/13/2015 Insomnia 01/13/2015 HTN, goal below 140/90 Anxiety documented as of this encounter (statuses as of 03/29/2023) Resolved Problems Problem Noted Date Resolved Date Food insecurity 04/07/2021 05/14/2022 Overview: Per [facility] Protocol documented as of this encounter (statuses as of 03/29/2023) Immunizations Name Administration Dates Next Due COVID-19 [...] * Telephone Encounter - JOÃO Francis - 03/29/2023 10:32 AM EDT Pt scheduled appt * Telephone Encounter - JOÃO Francis - [...] referral need to be placed into the [facility] system? Name of preferred specialist: Type of specialist: Casework Specialist Location of specialist: Specialist's Phone #: Specialist's Fax #: Reason for visit: Pt has things pt would like looked at on pt's back Date of visit: documented in this encounter Plan of Treatment Upcoming Encounters Date Type Specialty Care Team Description 04/22/2023 Office Visit Family Medicine Ghazlaa Duke PA-C [address] [place] [address] 06/17/2023 Office Visit Rheumatology Krystian Villarreal MD [address] [place] [address] Scheduled Procedures Name Priority Associated Diagnoses Date/Ti [...] filedocumented as of this encounter Care Teams Bridges Supervisor Relationship Specialty Start Date End Date Kaleigh Miramontes DO [address] [place] [address] PCP - General Family Medicine 10/25/14 documented as of this encounter
[2023-08-17] MEDS: HYDROXYCHLOROQUINE SULFATE 200 MG TAB PO SCH ×2 (06:03→21:14)
[2023-08-17 06:33] LABS: Basophils # (auto) 0.04 K/uL (0.00-0.20); Basophils % (auto) 0.9 %; Eosinophils # (auto) 0.14 K/uL (0.00-0.50); Eosinophils % (auto) 3.2 %; Hematocrit (blood only) 31.8 % (37.0-47.0); Hemoglobin 10.7 g/dl (12.0-16.0); Immature Granulocytes # (auto) 0.01 K/uL (0.01-0.20); Immature Granulocytes % (auto) 0.2 %; Lymphocytes % (auto) 24.9 %; Mean Corpuscular Hemoglobin 27.7 pg (25.0-34.0); Mean Corpuscular Hgb Conc 33.6 g/dL (32.0-36.0); Mean Corpuscular Volume 82.4 fL (80.0-100.0); Mean Platelet Volume 10.5 fL (9.4-12.4); Monocytes # (auto) 0.59 K/uL (0.11-0.59); Monocytes % (auto) 13.3 %; Neutrophils # (auto) 2.54 K/uL (1.40-6.50); Neutrophils % (auto) 57.5 %; Platelet Count 216 K/uL (130-400); RDW Coefficient of Variation 15.4 % (11.5-14.5); RDW Standard Deviation 45.9 fL (36.4-46.3); Red Blood Count 3.86 M/uL (4.20-5.40); White Blood Count 4.42 K/ul (4.8-10.8)
--- NOTE | 2023-08-17 06:46 | XRay Report ---
XR chest 1V portable HISTORY: hyponatremia COMPARISON: None. FINDINGS: No pneumothorax. No pleural effusions. Prior cholecystectomy. The heart is mildly enlarged. There is mild central pulmonary vascular congestion without overt edema. No focal lung consolidation s to suggest a pneumonia. No acute fractures. IMPRESSION: Cardiomegaly and mild congestive change. ACT 112: Negative or not required by law. Electronically signed by: Clarke Mercer M.D. 08/17/2023 6:45 AM
[2023-08-17 06:49] LABS: BUN Creatinine Ratio 6.7 (10-20); Calcium 8.3 mg/dl (8.6-10.3); Creatinine Clr Calc Pharmacy 112.8 ml/min; Est GFR (African American) 121.5 ml/min; Est GFR (Non-African American) 104.8 ml/min; Potassium 4.1 mmol/L (3.5-5.1)
[2023-08-17 06:59] LABS: Estimated Average Glucose 114 mg/dl; Hemoglobin A1C 5.6 % (4.5-5.6)
[2023-08-17] MEDS: ALPRAZolam 0.5 MG TABLET PO PRN ×2 (07:42→20:16)
[2023-08-17] MEDS: VENLAFAXINE HCL XR 150 MG CAPXR PO SCH (07:45)
[2023-08-17] MEDS: MULTIVITAMIN TAB PO SCH (07:45)
[2023-08-17] MEDS: THIAMINE HCL 100 MG TAB PO SCH (07:45)
[2023-08-17] MEDS: FOLIC ACID 1 MG TAB PO SCH (07:45)
[2023-08-17] MEDS: lisinopril 20 MG TAB PO SCH (07:45)
[2023-08-17] MEDS: GABAPENTIN 300 MG CAP PO SCH ×3 (07:46→21:14)
[2023-08-17] MEDS: busPIRone 5 MG TAB PO SCH ×2 (07:46→21:15)
[2023-08-17] MEDS: ENOXAPARIN INJ 40 MG/0.4 ML SYR SQ SCH (07:49)
[2023-08-17] MEDS ORDERED: DESMOPRESSIN ACETATE 2 MCG in SODIUM CHLORIDE 0.9% 50 ML IV ONE (13:45)
[2023-08-17] MEDS ORDERED: DEXTROSE 5% 1,000 ML IV SCH (13:45)
--- NOTE | 2023-08-17 14:09 | Nephrology Consultation ---
Date of Consultation August 17, 2023 Assessment & Plan (1) Hyponatremia: Euvolemic hyponatremia with extremely low urine osmolarity of 43. This is classic psychogenic polydipsia. She drank massive amount of liquid in a short period of time. Her blood alcohol level at the time of admission was normal so I do not think this was alcohol. She claims she drinks a lot of water. On direct questioning it appears that she only drank about 3 L/day but it is impossible to get a urine osmolarity of 43 with just 3 L of fluid per day. She is going through a lot of psychosocial issues at this time. Diagnosis is psychogenic polydipsia with massive fluid intake causing severe hyponatremia. Most likely her serum sodium also dropped relatively fast and was probably the reason for her symptoms. Given that this is a case of acute severe drop of serum sodium with symptoms it does not necessarily have to be corrected at a very slow rate like we normally do for chronic SIADH. Because the etiology was psychogenic polydipsia serum sodium corrected extremely fast as she was not drinking massive amount of water like she was doing at home. Does not need fluid restriction. She just needs sensible amount of fluid intake like about 2 L/day No alcohol I do want to do another BMP now and most likely na will be even higher than before. Will try to slow down the rate of correction a little bit try giving 1000 mL of D5 water and 2 mcg of desmopressin IV. History of Present Illness Reason for Consultation: Hyponatremia Attending Physician: Marques Herrera MD History of Present Illness 53-year-old female who came to the hospital yesterday because of multitude of symptoms including near syncopal event headache feeling weak and also some degree of shortness of breath. She was not feeling good at work yesterday morning after which her friends told her to go to the hospital. She was found to have a serum sodium of 120. As per patient she has had mild hyponatremia for some time now with serum sodium in the low 130 range. She is status post gastric bypass in 2011, history of alcohol abuse but sober since 2019 but had an alcohol binge 6 days ago, rheumatoid arthritis managed with weekly methotrexate and Plaquenil, hypertension, anxiety/depression and hyperlipidemia, hydrocephalus as an status post ventriculostomy. Head CT was performed and results indicate No acute abnormalities. Ventriculostomy catheter and ventriculomegaly are unchanged from prior. Other than the low sodium no significant findings noted.Serum Na+ 120 was 136 on 07/13/23. Urine Osm was only 43 !!!! She is only admitting to drink about 3 L/day. Serum sodium corrected really fast not surprisingly given the urine and was 133 by this morning. She first received normal saline but then also received some D5 water to slow down the rate of correct. Blood alcohol level was normal salicylate and Tylenol level was normal but urine was positive for marijuana. She feels normal now. Review of system------ prior to hospitalization she had multitude of vague symptoms including headache some vague numbness as well as near syncope event and weakness. But she denies having diarrhea chest pain shortness of breath orthopnea PND lower extremity edema urinary complaints significant loss of appetite. Total system reviewed was 12 and was otherwise negative. Physical examination----awake alert oriented x 3 and was able to give detailed account of her medical history Mucous membrane is moist neck is supple no jugular venous distention Chest bilateral clear to auscultation CVS S1-S2 regular no murmur rub or gallop heard Abdomen is soft nontender Extremity shows no edema Skin shows no rash Neurologically awake alert oriented normal speech and accurate history. Allergies Allergy/AdvReac Type Severity Reaction Status Date / Time No Known Allergies Allergy Verified 07/26/20 18:39 Home Medications Medication Instructions Recorded Confirmed Type alprazolam 0.5 mg tablet 0.5 mg PO BID PRN Anxiety 10/28/18 08/16/23 History venlafaxine 150 mg 150 mg PO QAM 10/28/18 08/16/23 History capsule,extended release 24 hr clonidine HCl 0.1 mg tablet 0.2 mg PO HS 10/23/19 08/16/23 History lisinopril 20 mg tablet 20 mg PO QAM 07/26/20 08/16/23 History buspirone 10 mg tablet 10 mg PO BID 08/16/23 08/16/23 History gabapentin 300 mg capsule 300 mg PO TID 08/16/23 08/16/23 History hydroxychloroquine 200 mg tablet 200 mg PO HS 08/16/23 08/16/23 History methotrexate sodium 2.5 mg tablet 10 mg PO 2XWK 08/16/23 08/16/23 History Patient History Medical History HTN (hypertension) Alcohol use Rheumatoid arthritis Hyponatremia Alcoholic intoxication Dysthymia (or depressive neurosis) Surgical History History of gastric bypass Family History Other No pertinent family history in first degree relatives Social History Smoking Status: Current every day smoker Tobacco Type: Cigarettes Second Hand Exposure: No; Do You Dip or Chew Tobacco: No; Tobacco Cessation Education Requested by Patient: No Hx Alcohol Use: Yes Alcohol type: beer Hx Substance Use: No Preferred Language: Korean Communication Ability: Effective Supply Room Clerk Required: No Beliefs That Will Affect Care: None marital status: Current Living Situation: Alone current occupational status: employed Other Information That Helps Us Care for You: No Feels Safe at Home: Yes Safety Concerns: Feels Safe At This Time Assistive Devices: None Results & Data Vital Signs (Past 12 Hours) Vital Signs Temp Pulse Pulse Pulse Resp BP Pulse Ox 08/17/23 11:54 36.6 C 74 18 107/71 96 08/17/23 07:46 36.7 C 72 18 115/79 96 08/17/23 07:22 71 08/17/23 04:00 36.7 C 67 18 103/71 97 O2 Del Method 08/17/23 11:54 Room Air 08/17/23 07:46 Room Air 08/17/23 07:22 08/17/23 04:00 Room Air Diagnostic Findings Serum sodium 120 Urine osmolarity was superlow at 43!!!!
--- NOTE | 2023-08-17 14:44 | Hospitalist Progress Note ---
Date of Service August 17, 2023 Assessment & Plan (1) Hyponatremia: (2) History of gastric bypass: (3) Dysthymia (or depressive neurosis): (4) Rheumatoid arthritis: (5) Alcohol use: (6) HTN (hypertension): Plan Per admitting service notes with addendum: Ms. Talbert is a 53 year old female that presented to the [facility] today as per recommendation by her coworkers. This morning she was feeling faint at work, she works at [employer]. She was walking and knocked over some [employer] decorations. Her coworkers stated that she should go to the emergency room she has history of alcohol abuse and had an alcoholic drink last Wednesday; previously has been sober since 2019 She drank 12 simply lemonade's 5% proof over 32 hours. She follows with a counselor weekly who stated that it it appeared as though she has had worsening anxiety and dizziness over the past few weeks. Reports that there have been significant stressors in her life that led to her drinking which includes her fianc moving out and both grandparents within a few days of each other a few months ago. Additional PMH includes: Dysthymia, alcohol abuse, history of gastric bypass (2011), rheumatoid arthritis, hydrocephalus as an infant status post ventriculostomy. Head CT was performed and results indicate No acute abnormalities. Ventriculostomy catheter and ventriculomegaly are unchanged from prior. No leukocytosis and otherwise labs unremarkable outside of hyponatremia serum sodium 120. Patient denies headache, fatigue, lethargy, gait disturbance, confusion, forgetfulness, headache, gait disturbance, or muscle cramps. Denies recent falls or trauma. Patient reports no suicidal ideation, no falls however did feel syncopal earlier Suspect patient is hyponatremic secondary to alcohol use disorder. Patient is high risk for OTS; goal of initial therapy suggest to raise the serum sodium by 4 to 6 mEq/L over 24-hour period and avoid overcorrection. Check Q6 BMP, including serum Na+, Urine Osmo, urine Na+; based on next BMP consider Nephro logy involvement for consideration of 3% NS. Consider Behavioral Health Liason for worsening depressive mood. Thiamine for alcohol symptoms. Need to consider ECHO and rule out heart failure if no improvement with sodium. Hyponatremia: acute Likely secondary to alcohol use disorder Serum Na+ 120; was 136 on 07/13/23 Patient is high risk for OTS; goal of initial therapy suggest to raise the serum sodium by 4 to 6 mEq/L over 24-hour period and avoid overcorrection. Check BMP with serum Na+ Q6 Check Urine Osmolality, Urine Na+ Consider Nephro involvement if no improvement 08/17 Sodium increased from 120, now 134 D5 water, desmopressin IV ordered Nephrology consulted Will need to avoid alcohol and limit water intake to 2 L/day max Repeat PRP scheduled for 3 PM and tomorrow morning Alcohol Abuse: Acute had her first alcoholic drink last Wednesday; previously has been sober since 2019 She drank 12 simply lemonade's 5% proof over 32 hours no signs of tremulous on exam Follows with a counselor weekly HTN: Chronic Takes Clonidine and Lisinopril; continue Dysthymia: Chronic Takes Venlafaxine;continue Takes Alprazolam PRN; continue --Patient reports mood is stable today Follows closely with provider at [facility] Rheumatoid arthritis: Chronic Follows with rheumatology; Dr. 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 Miramontes Code Status: Full Code VTE Prophylaxis: TEDs/SCDs for now; patient is ambulatory at baseline plan of care discussed with patient in detail and at length all questions answered she is understanding, agreeable, comfortable with the plan of care Admission and Anticipated Discharge Date Admission Date: August 16, 2023 Subjective Follow-up for severe hyponatremia, etc. Seen sitting up in bed, comfortable, not in distress In good spirits States that she feels better compared to yesterday Denies confusion, difficulty speaking, dizziness, weakness neck Review of Systems Review of Systems: all noted and negative except for above Physical Exam Physical Exam: General- oriented x 3, not in distress, speaks in sentences with no effort or accessory muscle use Eyes- anicteric Neck- no JVD Lungs- clear breath sounds bilaterally, no rales/wheezes Heart- normal rate, regular rhythm; no murmurs Abdomen- normal bowel sounds, nondistended, soft, nontender Extremities- no pretibial edema, no calf tenderness Neuro- alert, oriented x 3; no gross focal neurologic deficits Skin- warm & dry Results & Data Results & Data Vital Signs (Past 12 Hours) Vital Signs Temp Pulse Pulse Pulse Resp BP Pulse Ox 08/17/23 11:54 36.6 C 74 18 107/71 96 08/17/23 07:46 36.7 C 72 18 115/79 96 08/17/23 07:22 71 08/17/23 04:00 36.7 C 67 18 103/71 97 O2 Del Method 08/17/23 11:54 Room Air 08/17/23 07:46 Room Air 08/17/23 07:22 08/17/23 04:00 Room Air all noted and reviewed including below
[2023-08-17 16:59] LABS: Albumin Level 3.5 gm/dl (3.4-5.0); BUN Creatinine Ratio 12.1 (10-20); Calcium 8.1 mg/dl (8.6-10.3); Creatinine Clr Calc Pharmacy 102.6 ml/min; Est GFR (African American) 117.7 ml/min; Est GFR (Non-African American) 101.6 ml/min; Phosphorus 3.4 mg/dl (2.5-4.9); Potassium 4.2 mmol/L (3.5-5.1)
--- NOTE | 2023-08-17 18:25 | Psychiatric Consultation ---
Date of Consultation August 17, 2023 Impression / Recommendations Impression 53 y/o woman with history of recurrent major depression, generalized anxiety, and alcohol use disorder with recently-increased stressors including of 2 grandparents. She'd been abstinent from alcohol for about 3 years before relapsing. She isn't suicidal but does voice depressed mood and anxiety. Pt's current venlafaxine XR dose is below the roughly 225 mg threshold at which that medication starts exerting significant norepinephrine uptake, so a dose increase is likely to be more effective for both depression and anxiety since she reports a very significant effect at the current dose for an extended period. Of note is that all antidepressants except mianserin (which is not available in the [facility]) are associated with a risk of hyponatremia, with that association strongest with citalopram and lowest with duloxetine, venlafaxine, and mirtazapine. While it's possible the hyponatremia might be related to her venlafaxine use, switching to an alternate antidepressant is likely to increase rather than reduce that risk. I spoke with her about MAT for AUD, especially naltrexone, which she would like to consider. Overall I spent a total of 64 minutes on the floor for this consultation assessm ent including [review of chart records, ][review of test results, ][direct evaluation of the patient [id number], ][counseling the patient, ][reconciling and ordering medication, ][medication education with the patient, ][risk assessment], discussion with the psychiatric liaison nurse, and documentation in the electronic health record. (1) Major depressive disorder, recurrent, moderate: (2) Alcohol use disorder: Plan * increase venlafaxine XR to 225 mg PO QAM * consider naltrexone 50 mg PO daily Psych History Identifying Data ALEJANDRO LEIGH is a 53-year-old F with a history of depression and alcohol use disorder, admitted on 08/16/2023 for hyponatremia. Consult is by the hospitalist service for "worsening anxiety/depression". Chief Complaint "My meds aren't working as well". History of Present Illness As part of a thorough review of the available medical records, I have read and confirmed the following note by the ED physician: "53-year-old female presents emergency department for mental health evaluation. Patient reports she started drinking alcohol again recently. She states she called her counselor who referred her to the emergency depar tment. She currently denies any suicidal or homicidal ideation." the following note by the hospitalist: "Patient reports to ED stating she is having a psychiatric emergency. Patient reports she contacted her counselor and it was recommended she report to ED for evaluation. Patient states she has been sober for over a year, but has been drinking every day recently. Patient reports her last drink was an hour ago. She denies SI/HI. No hallucinations or delusions. Patient denies any falls, but states she almost fell at work this AM. " and the following note by the psychiatric liaison nurse: "Patient verbalized increased depression and anxiety lately. Last week she relapsed after 3 years of sobriety by drinking alcohol Wednesday and Wednesday evening. She is feeling committed to remaining sober but is unsure what ultimately led her to drink. Patient has outpatient services through [facility] and [facility]. She would like to discuss potential medication changes with the psychiatrist. Patient's stressors include family issues due to parents giving her grief over relapsing and recent of two grandparents. She denies suicidal thoughts, plan, or intent." Review of the medical record reveals 2 previous ED visits for alcohol relapses. Review of pertinent labs reveals they are most significant for sodium of 120 mmol/L on presentation. A urine toxicology screen was positive for metabolites of cannabis. BAL was 258.9 mg/dL. screen was negative. Pt has been taking venlafaxine XR 150 mg daily "about 10 years" prescribed by [facility] and says "it really worked great for a long time. A few months ago it started to seem to work less well. She has never associated it with any side effects. She says "a while back" she was given a presciption for 75 mg capsules in order to increase the dose "but didn't end up doing that". Buspirone was added "about a week ago". Denies hopelessness, helplessness, or suicidal thoughts. Past Psychiatric History Current Psychiatric Diagnosis: depression, anxiety Outpatient Services: [facility] & [facility] Previous Psych Admissions: none History of Previous Suicide Attempt: No Allergies Allergy/AdvReac Type Severity Reaction Status Date / Time No Known Allergies Allergy Verified 07/26/20 18:39 Home Medications Medication Instructions Recorded Confirmed Type alprazolam 0.5 mg tablet 0.5 mg PO BID PRN Anxiety 10/28/18 08/16/23 History venlafaxine 150 mg 150 mg PO QAM 10/28/18 08/16/23 History capsule,extended release 24 hr clonidine HCl 0.1 mg tablet 0.2 mg PO HS 10/23/19 08/16/23 History lisinopril 20 mg tablet 20 mg PO QAM 07/26/20 08/16/23 History buspirone 10 mg tablet 10 mg PO BID 08/16/23 08/16/23 History gabapentin 300 mg capsule 300 mg PO TID 08/16/23 08/16/23 History hydroxychloroquine 200 mg tablet 200 mg PO HS 08/16/23 08/16/23 History methotrexate sodium 2.5 mg tablet 10 mg PO 2XWK 08/16/23 08/16/23 History Patient History Medical History (Updated 08/17/23 @ 19:45 by Trino Conley MD) Alcohol use disorder Major depressive disorder, recurrent, moderate HTN (hypertension) Alcohol use Rheumatoid arthritis Hyponatremia Alcoholic intoxication Dysthymia (or depressive neurosis) Surgical History History of gastric bypass Family History Other No pertinent family history in first degree relatives Social History Smoking Status: Current every day smoker Tobacco Type: Cigarettes Second Hand Exposure: No; Do You Dip or Chew Tobacco: No; Tobacco Cessation Education Requested by Patient: No Hx Alcohol Use: Yes Alcohol type: beer Hx Substance Use: No Preferred Language: Hebrew Communication Ability: Effective Neuropsychiatrist Required: No Beliefs That Will Affect Care: None marital status: Current Living Situation: Alone current occupational status: employed Other Information That Helps Us Care for You: No Feels Safe at Home: Yes Safety Concerns: Feels Safe At This Time Assistive Devices: None Physical Exam Psychiatric: Orientation: alert, oriented to person, oriented to place, oriented to time and cooperative Apperance: appropriately dressed and appropriately groomed Eye Contact: good eye contact Motor Behavior: no abnormal motor movements Speech: normal rate/rhythm/volume of speech Affect: + constricted affect Mood: + anxious mood and + dysphoric mood Thought Process: linear/logical thought process and thought association intact Thought Content: reality based without delusions; no delusions, no hopelessness and no worthlessness Suicidal Thoughts: denies suicidal thoughts, denies suicidal plan and denies suicidal intent Homicidal Thoughts: denies homicidal thoughts Hallucinations: no auditory hallucinations and no visual hallucinations Cognition: recent memory grossly intact, remote memory grossly intact, attention grossly intact and language grossly intact Estimated Intelligence: consistent with education level Insight: good insight Judgment: good judgement Vital Signs (Past 24 Hours): Last Vital Signs Temp 37.1 C 08/17/23 15:16 Pulse 72 08/17/23 16:08 Resp 18 08/17/23 15:16 BP 115/71 08/17/23 15:16 Pulse Ox 97 08/17/23 15:16 O2 Del Method Room Air 08/17/23 15:16 Review of Systems Psychiatric: + depression, + anhedonia, + anxiety and + substance abuse; no hopelessness, no suicidal ideation, no paranoia and no hallucinations Results & Data (PSY) Medications Administered Alprazolam (Alprazolam 0.5 Mg Tablet) 0.5 mg PO BID PRN PRN Reason: Anxiety Stop: 09/15/23 21:24 Last Admin: 08/17/23 07:42 Dose: 0.5 mg Documented By: STONE Buspirone HCl (Buspirone 5 Mg Tab) 10 mg PO BID [facility] Stop: 09/16/23 08:59 Last Admin: 08/17/23 07:46 Dose: 10 mg Documented By: STONE Enoxaparin Sodium (Enoxaparin Inj 40 Mg/0.4 Ml Syr) 40 mg SQ [facility] Stop: 09/16/23 08:59 Last Admin: 08/17/23 07:49 Dose: 40 mg Documented By: STONE Folic Acid (Folic Acid 1 Mg Tab) 1 mg PO QAM [facility] Stop: 09/16/23 08:59 Last Admin: 08/17/23 07:45 Dose: 1 mg Documented By: STONE Gabapentin (Gabapentin 300 Mg Cap) 300 mg PO TID [facility] Stop: 09/16/23 08:59 Last Admin: 08/17/23 14:19 Dose: 300 mg Documented By: Admin: 08/17/23 07:46 Dose: 300 mg Documented By: STONE Hydroxychloroquine Sulfate (Hydroxychloroquine Sulfate 200 Mg Tab) 200 mg PO HS [facility] Stop: 09/15/23 23:43 Last Admin: 08/17/23 06:03 Dose: 200 mg Documented By: ASHLY Dextrose (D5w) 1,000 mls @ 100 mls/hr IV .Q10H [facility] Stop: 09/16/23 13:44 Last Admin: 08/17/23 14:19 Dose: 100 mls/hr Documented By: STONE Lisinopril (Lisinopril 20 Mg Tab) 20 mg PO [facility] Stop: 09/16/23 08:59 Last Admin: 08/17/23 07:45 Dose: 20 mg Documented By: STONE Multivitamins (Multivitamin Tab) 1 tab PO [facility] Stop: 09/16/23 08:59 Last Admin: 08/17/23 07:45 Dose: 1 tab Documented By: STONE Thiamine HCl (Thiamine Hcl 100 Mg Tab) 100 mg PO [facility] Stop: 09/16/23 08:59 Last Admin: 08/17/23 07:45 Dose: 100 mg Documented By: STONE Venlafaxine HCl (Venlafaxine Hcl Xr 150 Mg Capxr) 150 mg PO [facility] Stop: 09/16/23 08:59 Last Admin: 08/17/23 07:45 Dose: 150 mg Documented By: STONE Coding Level of Care Code 31239 [facility] Intl Hosp Care Lvl 3 Diagnoses Major depressive disorder, recurrent, moderate F33.1 Alcohol use disorder F10.90 Time Spent (min) 64
[2023-08-17] MEDS ORDERED: cloNIDine HCL 0.1 MG TAB PO SCH (21:00)
[2023-08-18 07:36] LABS: BUN Creatinine Ratio 14.5 (10-20); Calcium 8.2 mg/dl (8.6-10.3); Est GFR (African American) 120.2 ml/min; Est GFR (Non-African American) 103.7 ml/min; Potassium 4.7 mmol/L (3.5-5.1)
[2023-08-18] MEDS: busPIRone 5 MG TAB PO SCH (07:47)
[2023-08-18] MEDS: MULTIVITAMIN TAB PO SCH (07:48)
[2023-08-18] MEDS: GABAPENTIN 300 MG CAP PO SCH (07:48)
[2023-08-18] MEDS: THIAMINE HCL 100 MG TAB PO SCH (07:48)
[2023-08-18] MEDS: VENLAFAXINE HCL XR 150 MG CAPXR PO SCH (07:48)
[2023-08-18] MEDS: lisinopril 20 MG TAB PO SCH (07:48)
[2023-08-18] MEDS: ENOXAPARIN INJ 40 MG/0.4 ML SYR SQ SCH (07:48)
[2023-08-18] MEDS: FOLIC ACID 1 MG TAB PO SCH (07:49)
[2023-08-18] MEDS: ALPRAZolam 0.5 MG TABLET PO PRN (07:54)
--- NOTE | 2023-08-18 13:34 | Nephrology Progress Note ---
Date of Service August 18, 2023 Assessment & Plan Admission and Anticipated Discharge Date Admission Date: August 16, 2023 Subjective Assessment & Plan (1) Hyponatremia: Euvolemic hyponatremia with extremely low urine osmolarity of 43. This is classic psychogenic polydipsia. She drank massive amount of liquid in a short period of time. Her blood alcohol level at the time of admission was normal so I do not think this was alcohol. She claims she drinks a lot of water. She is going through a lot of psychosocial issues at this time. Diagnosis is psychogenic polydipsia with massive fluid intake causing severe hyponatremia. Most likely her serum sodium also dropped relatively fast and was probably the reason for her symptoms. Given that this is a case of acute severe drop of serum sodium with symptoms it does not necessarily have to be corrected at a very slow rate like we normally do for chronic SIADH. Because the etiology was psychogenic polydipsia serum sodium corrected extremely fast as she was not drinking massive amount of water like she was doing at home. We are able to slow down with d5w and Desmopressin. Does not need fluid restriction. She just needs sensible amount of fluid intake like about 2 to 2.5 L/day. based on Urine Osm she was definitely drinking more than 12 liter per day. She was drinking water all day not being aware she was drinking----But she was drinking massive amount No alcohol I do want to do another BMP now and most likely na will be higher than before. Can be on Any SSRI which is needed as per Psych as She is going through a lot of psychosocial issues at this time.Also unless we control her Psych status her Hyponatremia is likely to recur. S--feels fine. No new issues. Physical examination----awake alert oriented x 3 and was able to give detailed account of her medical history Mucous membrane is moist neck is supple no jugular venous distention Chest bilateral clear to auscultation CVS S1-S2 regular no murmur rub or gallop heard Abdomen is soft nontender Extremity shows no edema Skin shows no rash Neurologically awake alert oriented normal speech and accurate history. Results & Data Vital Signs (Past 12 Hours) Vital Signs Temp Pulse Pulse Pulse Resp BP Pulse Ox 08/18/23 12:34 36.7 C 67 84 18 154/89 H 98 08/18/23 12:11 36.7 C 84 18 154/89 H 98 08/18/23 10:44 61 08/18/23 10:40 36.6 C 67 75 18 123/66 99 08/18/23 07:16 36.6 C 75 18 123/66 99 08/18/23 03:20 36.5 C 68 18 107/70 98 O2 Del Method 08/18/23 12:34 08/18/23 12:11 Room Air 08/18/23 10:44 08/18/23 10:40 08/18/23 07:16 Room Air 08/18/23 03:20 Room Air
--- NOTE | 2023-08-18 14:45 | Discharge Summary ---
Date of Service August 18, 2023 Admission HPI Per Admitting Provider Ms. Talbert is a 53 year old female that presented to the [facility] today as per recommendation by her coworkers. This morning she was feeling faint at work, she works at [employer]. She was walking and knocked over some [employer] decorations. Her coworkers stated that she should go to the emergency room she has history of alcohol abuse and had an alcoholic drink last Wednesday; previously has been sober since 2019 She drank 12 simply lemonade's 5% proof over 32 hours. She follows with a counselor weekly who stated that it it appeared as though she has had worsening anxiety and dizziness over the past few weeks. Reports that there have been significant stressors in her life that led to her drinking which includes her fianc moving out and both grandparents within a few days of each other a few months ago. Additional PMH includes: Dysthymia, alcohol abuse, history of gastric bypass (2011), rheumatoid arthritis, hydrocephalus as an infant. Head CT was performed and results indicate No acute abnormalities. Ventriculostomy catheter and ventriculomegaly are unchanged from prior. Patient denies headache, fatigue, lethargy, gait disturbance, confusion, forgetfulness, headache, gait disturbance, or muscle cramps. Denies recent falls or trauma. Patient reports no suicidal ideation, no falls however did feel syncopal earlier. Suspect patient is hyponatremic secondary to alcohol use disorder. Patient is high risk for OTS; goal of initial therapy suggest to raise the serum sodium by 4 to 6 mEq/L over 24-hour period and avoid overcorrection. Check Q6 BMP, inclu ding serum Na+, Urine Osmo, urine Na+; based on next BMP consider Nephrology involvement for consideration of 3% NS. Patient will be admitted for further evaluation and management. Please see A/P for further details. Admission Exam Per Admitting Provider Neuro: AAOx4, PERRLA, no aphagia, memory changes, CNII-XII grossly intact HEENT: head normocephalic, moist mucus membranes CV: S1/S2, (-) M/G/R, (-) edema, cap refill < 3 seconds Resp: Lungs CTA in all beltran. On RA GI: Abdomen S/NT/ND, Ax4 bowel sounds, (-) CVA tenderness Musculoskeletal: 5/5 B/L UE strength, 5/5 B/L LE strength. No gait disturbance Skin: (-) rashes , (-) erythema. Psych: euthymic mood Principal Diagnosis Hyponatremia Discharge Exam General- oriented x 3, not in distress, speaks in sentences with no effort or accessory muscle use Lungs- clear breath sounds bilaterally, no rales/wheezes Heart- normal rate, regular rhythm; no murmurs Abdomen- normal bowel sounds, nondistended, soft, nontender Extremities- no pretibial edema, no calf tenderness Neuro- alert, oriented x 3; no gross focal neurologic deficits Skin- warm & dry Discharge Data Allergies Allergy/AdvReac Type Severity Reaction Status Date / Time No Known Allergies Allergy Verified 07/26/20 18:39 Consultations 08/16/23 19:45 ED Decision to Admit Stat 08/16/23 23:44 Consult Psychiatry Routine 08/17/23 08:18 Consult Nephrology Routine Ordered Studies 08/16/23 17:38 CT head/brain wo con Stat Hospital Course (1) Hyponatremia: (2) History of gastric bypass: (3) Dysthymia (or depressive neurosis): (4) Rheumatoid arthritis: (5) Alcohol use: (6) HTN (hypertension): Plan Ms. Talbert is a 53 year old female that presented to the [facility] with generalized weakness. Patient's serum sodium was found to be 120 on admission. Patient reported drinking large amount of fluid prior to admission. Urine osmolarity was 43. Nephrology was consulted for comanagement. She was given D5 and desmopressin for overcorrection. Her sodium at discharge was 131. Patient was counseled not to drink excessive amount of fluids. Patient to follow-up with PCP and obtain BMP. As per recommendation by psychiatry; her dose of venlafaxine was increased to 225 mg and a new prescription was sent. Patient to follow-up with PCP and discussed regarding starting naltrexone for al cohol use disorder. Please note the above document was generated using voice recognition software. It may contain grammatical, syntax or spelling errors. Any formal questions or concerns about the content, text or information contained within the body of this dictation should be directly addressed to the provider for clarification Total Time Total Time Spent Total Time Spent (In Minutes): 35 Total Time Includes: Examination of the Patient, Discharge Planning, Medication Reconciliation, Communication With Other Providers and Other Discharge Plan Discharge Items Patient Disposition: Home - Self-Care Reason For Visit: HYPONATREMIA Discharge Diagnosis: Hyponatremia Activity: Resume your previous activity Non-emergency contact: Primary Care Provider Call non-emergency contact if: you have any medication questions and your symptoms worsen Follow-up/Referrals: Kaleigh Miramontes DO [Primary Care Provider] - (Date & Time 08/26/2023 7:20 AM Provider Kaleigh Miramontes DO [facility] ) Diet: Regular Addtl Attending Provider Instructions: You were admitted to the hospital due to low sodium level in your blood. The likely reason for it is excessive fluid intake. Please limit your fluid intake to 2 L/day. An appointment will be set up with your primary care doctor for sometime later this week or next week. Please discuss regarding starting naltrexone 50 mg once a day for alcohol use disorder. Also, referral to addiction medicine may be helpful. Repeat BMP to check on your sodium level when you see your primary care doctor. A New prescription of increased dose of venlafaxine(225) is sent to the pharmacy as recommended by Dr. Conley from psychiatry Pending Studies at Discharge: No Stand-Alone Forms: My [facility] [place] [employer], Work/School Release, Smoking Cessation Medications and DC Order Prescriptions: New thiamine HCl (vitamin B1) 100 mg Tablet 100 mg PO QAM Qty: 30 0RF folic acid 1 mg Tablet 1 mg PO QAM Qty: 30 0RF venlafaxine 225 mg tablet extended release 24hr 225 mg PO DAILY Qty: 30 0RF Continued alprazolam 0.5 mg tablet 0.5 mg PO BID PRN (Reason: Anxiety) clonidine HCl 0.1 mg tablet 0.2 mg PO HS lisinopril 20 mg tablet 20 mg PO QAM methotrexate sodium 2.5 mg tablet 10 mg PO 2XWK buspirone 10 mg tablet 10 mg PO BID gabapentin 300 mg capsule 300 mg PO TID hydroxychloroquine 200 mg tablet 200 mg PO HS Discontinued venlafaxine 150 mg capsule,extended release 24hr 150 mg PO QAM Discharge Orders: Discharge Order (Routine); Ordered 08/18/23 Ordered By: Mando Hinton Admission Data Admit Date/Time: 08/16/23 21:24 Attending Provider: Mando Hinton Admit Provider: Judah Gomez Primary Care Provider: Kaleigh Miramontes Other Providers: Judah Gomez; Alla Schwartz; Mitzi Campo; Nasim Traore; Trino Conley; Yoni Patton; Marques Herrera Other Interventions: Discharge Summary Assessment (RN) Last Done: 08/18/23 12:34
[2023-08-19 11:37] LABS: Marijuana Quant, GCMS Urine 1083 ng/mL (<5)
== END 2023-08-18 13:46 | disposition home or self-care (01) | DRG 641 ==
LOC: ED 16:40 → 2N 21:24 → SUATTDRO 21:24 → 2N 23:29